=== PATIENT | female | born 1960 | race Caucasian/White ===

== ENCOUNTER 2021-03-31 13:58 | Inpatient (IN) ==
--- NOTE | 2021-03-31 14:20 | Emergency Department Note ---
HPI General Chief complaint: Blood Pressure Problem Stated complaint: low bp, tachycardia Time Seen by Provider: 03/31/21 14:03 Source: patient Mode of arrival: wheelchair Limitations: no limitations History of Present Illness HPI Narrative: Narrative: 60 yo F w/ complex PMH including TAVR for severe (03/12/21 at [place]) along w/ CHF, DM, p/w reported low blood pressure and lightheadedness. She reports that the Sx began this AM on waking and have been constant w/o alleviating/aggravating factors since then. She has not had similar Sx in the past. Her is here w/ her and has a record of her daily BP. It seems that she is usually either right around 100 systolic or 150 systolic. She is on metoprolol which was started after her TAVR, at 25mg BIP, but is being switched to QD dosing. Additionally, she notes an open wound at her R femoral access site for the TAVR. She reports having a wound vac on for one week after the procedure. She was then referred to wound care but could not immediately see them. Currently she has clear/yellow drainage, no fever/chills, no spreading erythema. She denies any other Sx such as CP, SOB, N/V/D. Related Data Home Medications Medication Instructions Recorded Confirmed diclofenac sodium 1 % topical gel 2 g TOPICAL QID 03/08/19 03/31/21 aspirin 81 mg tablet,delayed 81 mg PO QDAY 03/19/21 03/31/21 release losartan 25 mg tablet 25 mg PO QDAY 03/25/21 03/31/21 metoprolol succinate 25 mg 25 mg PO QDAY 03/27/21 03/31/21 tablet,extended release 24 hr Previous Rx's Medication Instructions Recorded fluticasone propionate 50 2 spray INTRANASAL QDAY #36.4 ml 06/06/19 mcg/actuation nasal spray,suspension clotrimazole 2 % vaginal cream 1 appful VAGINAL QHS 3 Days #21 g 01/05/20 levetiracetam 500 mg tablet 500 mg PO BID #180 tab 06/17/20 blood sugar diagnostic #200 each 06/27/20 lorazepam 1 mg tablet 0.5 mg PO Q8H PRN #90 tab 06/27/20 gabapentin 300 mg capsule See Rx Instructions .ROUTE 07/29/20 .COMPLEX #360 cap conjugated estrogens 0.625 mg/gram 0.625 mg VAGINAL 2XW #30 g 08/27/20 vaginal cream insulin lispro protamine-lispro 50 unit SUB-Q .COMPLEX #100 ml 10/28/20 100 unit/mL (75-25) subcutaneous susp ergocalciferol (vitamin D2) 1,250 See Rx Instructions .ROUTE 12/10/20 mcg (50,000 unit) capsule .COMPLEX #12 cap atorvastatin 80 mg tablet 80 mg PO QHS #90 tab 01/01/21 clopidogrel 75 mg tablet 75 mg PO QDAY #90 tab 01/01/21 quetiapine 25 mg tablet 25 - 50 mg PO QHS #180 tab 01/01/21 insulin syringe-needle U-100 1 mL See Rx Instructions .ROUTE 01/24/21 31 gauge x 10/06" .COMPLEX #100 each baclofen 10 mg tablet See Rx Instructions .ROUTE 02/06/21 .COMPLEX #90 tab fluconazole 100 mg tablet 100 mg PO QDAY #7 tab 02/11/21 hydrocodone 10 mg-acetaminophen 1 tab PO Q4H PRN #90 tab 02/24/21 325 mg tablet metformin 1,000 mg tablet See Rx Instructions .ROUTE 03/05/21 .COMPLEX #300 tab Allergies Allergy/AdvReac Type Severity Reaction Status Date / Time morphine Allergy Unknown Itching Verified 03/31/21 14:04 moxifloxacin [From Avelox] Allergy Unknown skin Verified 03/31/21 14:04 irritation, bright red Review of Systems ROS ROS Narrative: Narrative: All systems ED: reviewed and negative except as stated. [facility] Narrative Patient History Narrative: Narrative: Medical/Surgical/Family History All Active Problems Light-headedness (Acute) CHF (congestive heart failure) (Acute) Sepsis (Acute) Postoperative wound infection (Acute) S/P TAVR (transcatheter aortic valve replacement) (Acute) CHF (congestive heart failure) (Acute) Type 2 diabetes mellitus (Acute) Hypotension (Acute) Postoperative external wound disruption (Acute) Anemia (Acute) Aortic stenosis (Acute) Syncope (Acute) Sebaceous cyst (Acute) Atrophic vaginitis (Acute) Vagina, candidiasis (Acute) Sinusitis (Acute) Headaches due to old head injury (Acute) Near syncope (Acute) SOB (shortness of breath) (Acute) Left knee pain (Acute) Pain, dental (Acute) Right knee pain (Acute) Vaginal candidiasis (Acute) Calcified cerebral meningioma (Chronic) Gastroparesis (Chronic) Pancreatitis (Chronic) History of colonoscopy (Chronic) History of total abdominal hysterectomy (Chronic ~1985) Hx MRSA infection (Chronic ~2006) Right foot pain (Chronic) Depression (Chronic) Insomnia (Chronic) Anxiety (Chronic) Neoplasm of kidney (Chronic ~08/2010) Shoulder impingement syndrome (Chronic) Tobacco abuse (Chronic) Peripheral vascular disease (Chronic) Leg pain (Chronic) Fatigue (Chronic) Seizure (Chronic) CVA (cerebral vascular accident) (Chronic) Hyperlipidemia (Chronic) Diverticular disease (Chronic) Unspecified vitamin D deficiency (Chronic) Inguinal pain of both sides (Chronic) Diabetic peripheral neuropathy (Chronic) Knee pain (Chronic) Headache (Chronic) Chalazion (Chronic) Diabetic foot ulcer (Chronic) Paresthesia (Chronic) Chronic pain syndrome (Chronic) BMI 40.0-44.9, adult (Chronic) Other injury of unspecified body region, initial encounter (Chronic) At risk for falls (Chronic) DDD (degenerative disc disease), cervical (Chronic) Diabetes mellitus treated with insulin (Chronic) Medical History Anemia Anxiety At risk for falls BMI 40.0-44.9, adult Calcified cerebral meningioma Chalazion Chronic pain syndrome CVA (cerebral vascular accident) DDD (degenerative disc disease), cervical Depression Diabetes mellitus treated with insulin Diabetic foot ulcer Diabetic peripheral neuropathy Diverticular disease Fatigue Gastroparesis Headache Hyperlipidemia Inguinal pain of both sides Insomnia Knee pain Leg pain Other injury of unspecified body region, initial encounter Pancreatitis Paresthesia Peripheral vascular disease Right foot pain Seizure Shoulder impingement syndrome Tobacco abuse Unspecified vitamin D deficiency Surgical History Carotid artery occlusion with infarction craniaotomy with myosin anglossis, left arm flacid, now some movement History of colonoscopy 2005 2014 - normal History of total abdominal hysterectomy (~1985) Hx MRSA infection (~2006) foot surgery with mrsa, chronic pain on hydrocodone Dr Brown Neoplasm of kidney (~08/2010) sx on 08/22 mass on kidney Family History Other No pertinent family history Social History Smoking Status: Former smoker Alcohol Intake Frequency: does not drink Substance Use: does not use Exam Narrative Narrative: Narrative: General Limitations: no limitations General appearance: Present alert and in no apparent distress Head Head: Present atraumatic and normocephalic ENT ENT: Present normal oropharynx and mucous membranes moist Chest Chest: Present normal inspection and symmetric chest wall rise Respiratory Respiratory: Present normal lung sounds bilaterally; Absent respiratory distress, rales/crackles and wheezes Cardiovascular Cardiovascular: Present regular rate, normal rhythm, +S1, +S2 and other (2+ B/L radial and DP pulses); Absent systolic murmur and diastolic murmur Adbominal Abdominal: Present soft and normal bowel sounds; Absent distention and tenderness Extremities Extremities: Absent pedal edema Neurological Neurological: Present alert and oriented X3 Psychiatric Psychiatric: Present normal affect Skin Skin: Present warm (WNL), dry and other (R femoral 8cm ulceration w/ leigh slough tissue, minimal surrounding blanching erythema, serous drainage on dressing, no active drainage, no warmth, no TTP.) Course Vital Signs Vital signs: Vital Signs Temperature 98.0 F 03/31/21 13:59 Pulse Rate 97 H 03/31/21 13:59 Respiratory Rate 22 03/31/21 13:59 Blood Pressure 127/37 03/31/21 13:59 Pulse Oximetry (%) 97 03/31/21 13:59 Temperature 98.0 F 03/31/21 13:59 Pulse Rate 97 H 03/31/21 13:59 Respiratory Rate 17 03/31/21 17:01 Blood Pressure 101/75 03/31/21 17:01 Pulse Oximetry (%) 97 03/31/21 13:59 [facility] MDM Narrative Medical decision making narrative: Narrative: 60 yo F w/ recent TAVR p/w lightheadedness, borderline BP, and drainage from her wound. DDx - sepsis, hemorrhagic shock, cardiogenic shock, metabolic/electrolyte d/o, NSTI Pt presented w/ her BP around baseline. She was in NAD, was non-toxic appearing. While she was not tachycardic per se, a HR in the 80s-90s did seem fairly fast on B-blockers. Given the presentation of malaise, and a wound w/ a possible infection, the evaluation was strongly suggestive of sepsis. I considered hem orrhagic shock given the recent TAVR however there were no hard or soft signs of bleeding from the access site and no evidence of mediastinal bleeding. She had no SOB, CP, increasing edema that would suggest cardiogenic shock after her recent TAVR. CMP showed no serious abnormalities. CBC showed no leukocytosis. Her lactate however was fairly elevated. Her overall presentation was c/w sepsis d/t a wound infection. After my initial Hx, I planned to order rocephin. However Dr Mix, her [facility] physician arrived at that moment and we discussed her case. He stated that he had cultured the wound in the office and wanted to check his results prior to us ordering abx. He did so, but the results were not in, and he recommended vanc/zosyn which I ordered. He stated that he planned to debride her wound in the OR tomorrow, and requested hospitalist admission. She was accepted by the hospitalist. She tolerated all interventions well. Of note, she was at high risk for decompensation from IVF given her recent TAVR, her h/o CHF. I felt that the risks outweighed the benefits of IVF bolus, and proceeded w/ an infusion of 125/hr NS. Lab Data Lab results reviewed: Yes I reviewed the patient's lab results. Result diagrams: 03/31/21 14:25 03/31/21 14:25 Labs: Lab Results 03/31/21 03/31/21 Range/Units 14:25 14:25 WBC 7.9 (4.5-11.0) K/mcL RBC 3.98 (3.59-5.38) M/mcL Hgb 11.7 (11.2-15.7) g/dL Hct 37.6 (34.1-44.9) % MCV 94.5 (80.0-100.0) fL MCH 29.4 (26.0-34.0) pg MCHC 31.1 (31.0-36.0) g/dL RDW 13.6 (11.5-14.5) % Plt Count 459 H (140-440) K/mcL MPV 10.4 (7.4-10.4) fL Neut % (Auto) 63.5 (38.0-78.0) % Lymph % (Auto) 24.1 (15.5-49.0) % [place] % (Auto) 8.6 (1.0-12.0) % Eos % (Auto) 3.0 (0.0-7.0) % Baso % (Auto) 0.8 (0.0-2.0) % Lymph # (Auto) 1.91 (1.50-4.80) K/mcL [place] # (Auto) 0.68 (0.10-0.90) K/mcL Eos # (Auto) 0.24 (0.00-0.70) K/mcL Baso # (Auto) 0.06 (0.00-0.30) K/mcL Absolute Neutrophils 5.03 (1.80-8.00) K/mcL VBG Lactic Acid 4.0 H* (0.5-2.0) mmol/L Sodium 140 (133-145) mmol/L Potassium 4.2 (3.3-5.1) mmol/L Chloride 101 (96-108) mmol/L Carbon Dioxide 20 L (22-30) mmol/L Anion Gap 19.0 H (8.0-16.0) BUN 13 (6-20) mg/dL Creatinine 1.0 (0.6-1.1) mg/dL GFR Calculation 61 Glucose 247 H (70-105) mg/dL Calcium 9.5 (8.6-10.4) mg/dL Total Bilirubin 0.5 (0.1-1.0) mg/dL AST 25 (<32) U/L ALT 20 (<40) U/L Alkaline Phosphatase 78 (39-117) U/L Total Protein 7.6 (5.9-8.4) gm/dL Albumin 3.8 (3.2-5.2) gm/dL Globulin 3.8 H (2.2-3.7) gm/dL Albumin/Globulin Ratio 1.0 (1.0-2.3) CC TIME Critical Care Time Total Critical Care Time: 35 Attestation: The very real possibility of disability or existed without emergent intervention and required my utmost care. Organ systems at risk included CVS, skin, MSK. Interventions included abx, review of labs, and d/w specialist. Critical care time did not include any procedures. Discharge Plan Patient/Caregiver Discharge Instructions Pt seen by [employer]ER/PA only: No Clinical Impression: Light-headedness, CHF (congestive heart failure), Sepsis, Postoperative wound infection, S/P TAVR (transcatheter aortic valve replacement) Patient Disposition: Xfer As Inpt ([facility]) Condition: Fair
[2021-03-31] MEDS ORDERED: VANCOMYCIN 1,500 MG in 0.9 % SODIUM CHLORIDE 500 ML IV ONE (14:39)
[2021-03-31] MEDS ORDERED: PIPERACILLIN SODIUM/TAZOBACTAM 4.5 GM in DEXTROSE 5% IN WATER 50 ML IV ONE (14:39)
[2021-03-31] MEDS ORDERED: HYDROcodone/APAP 10/325MG TABLET PO PRN (15:18)
[2021-03-31 15:29] LABS: Basophils # (Auto) 0.06 K/mcL (0.00-0.30); Basophils % (Auto) 0.8 % (0.0-2.0); Eosinophils # (Auto) 0.24 K/mcL (0.00-0.70); Hematocrit 37.6 % (34.1-44.9); Hemoglobin 11.7 g/dL (11.2-15.7); Lymphocytes # (Auto) 1.91 K/mcL (1.50-4.80); Lymphocytes % (Auto) 24.1 % (15.5-49.0); Mean Cell Volume 94.5 fL (80.0-100.0); Mean Corpuscular HGB Conc 31.1 g/dL (31.0-36.0); Mean Platelet Volume 10.4 fL (7.4-10.4); Monocytes # (Auto) 0.68 K/mcL (0.10-0.90); Monocytes % (Auto) 8.6 % (1.0-12.0); Neutrophils % (Auto) 63.5 % (38.0-78.0); Platelet Count 459 K/mcL (140-440); RBC 3.98 M/mcL (3.59-5.38); Red Cell Distribution Width 13.6 % (11.5-14.5); WBC 7.9 K/mcL (4.5-11.0)
[2021-03-31] MEDS ORDERED: ERGOCALCIFEROL (VITAMIN D2) 50,000 UNIT CAPSULE PO SCH ×2 (15:30→17:39)
[2021-03-31] MEDS ORDERED: BACLOFEN 10 MG TABLET PO PRN ×2 (15:30→17:39)
[2021-03-31] MEDS ORDERED: ESTROGENS, CONJUGATED 1 APPFUL TUBE 30GM VAG SCH (15:30)
[2021-03-31] MEDS ORDERED: LORazepam 0.5 MG TABLET PO PRN ×2 (15:35→17:45)
--- NOTE | 2021-03-31 15:37 | Internal Med History&Physical ---
HPI History of Present Illness Patient information: Note initiated : 03/31/21 at 3:36 pm Service Date, if different from initiated Date: [] Patient: Lawanda Grant a 60 y/o F admitted on for low bp, tachycardia. Chief Complaint: [right groin wound] History of present illness: Ms. Grant is a 60 year old F history of aortic stenosis status post TAVR on March 12, 2021, congestive heart failure, type 2 diabetes mellitus, presenting with 1 day history of low blood pressure and lightheadedness. Symptoms started this morning on waking with exacerbations factors including any movement and activities. There is no prior similar episodes. She was started on metoprolol extended release 25mg PO twice daily, which was being changed to daily a week ago. She was also placed on a wound VAC for her right groin surgical wound for 1 week after her TAVR surgery. According to patient and , there is still some clear wound discharged since the removal of the wound VAC. She denies any fever or chills. She is complaining of 8.5 out of 10 sharp chest pain as well as 8.5 out of 10 burning right groin pain. Vital signs significant for soft blood pressure 74/57mmHg, labs pending. Dr. Mix consulted for wound management, and he would like me to admit patient for antibiotics therapy for the time being and wound debridement later. Constitutional Constitutional: Absent chills, excessive sweating, fatigue, fever(s) and weakness EENT Eyes: Absent blurry vision, change in vision, loss of vision and other visual disturbances Ears: Absent decreased hearing and tinnitus Nose, mouth and throat: Absent abnormal hearing, dry mouth, headache(s), nasal congestion and sore throat Cardiovascular Cardiovascular: Present chest pain at rest; Absent chest pain, edema, irregular heart rhythm and palpatations Respiratory Respiratory: Absent cough, dyspnea and wheezing Gastrointestinal Gastrointestinal: Absent abdominal pain, constipation, diarrhea, nausea and vomiting Musculoskeletal Musculoskeletal: Absent back pain, deformity, limited range of motion, muscle cramps, muscle weakness and numbness Integumentary Integumentary: Present wounds; Absent lesions and rash Neurological Neurological: Absent focal weakness, headache(s) and numbness Psychiatric Psychiatric: Absent anxiety, depression and hallucinations PFSH PFSH All Active Problems (Updated 03/31/21 @ 15:47 by Emir Rodarte MD) CHF (congestive heart failure) (Acute) Type 2 diabetes mellitus (Acute) Hypotension (Acute) Postoperative external wound disruption (Acute) Anemia (Acute) Aortic stenosis (Acute) Syncope (Acute) Sebaceous cyst (Acute) Atrophic vaginitis (Acute) Vagina, candidiasis (Acute) Sinusitis (Acute) Headaches due to old head injury (Acute) Near syncope (Acute) SOB (shortness of breath) (Acute) Left knee pain (Acute) Pain, dental (Acute) Right knee pain (Acute) Vaginal candidiasis (Acute) Calcified cerebral meningioma (Chronic) Gastroparesis (Chronic) Pancreatitis (Chronic) History of colonoscopy (Chronic) History of total abdominal hysterectomy (Chronic ~1985) Hx MRSA infection (Chronic ~2006) Right foot pain (Chronic) Depression (Chronic) Insomnia (Chronic) Anxiety (Chronic) Neoplasm of kidney (Chronic ~08/2010) Shoulder impingement syndrome (Chronic) Tobacco abuse (Chronic) Peripheral vascular disease (Chronic) Leg pain (Chronic) Fatigue (Chronic) Seizure (Chronic) CVA (cerebral vascular accident) (Chronic) Hyperlipidemia (Chronic) Diverticular disease (Chronic) Unspecified vitamin D deficiency (Chronic) Inguinal pain of both sides (Chronic) Diabetic peripheral neuropathy (Chronic) Knee pain (Chronic) Headache (Chronic) Chalazion (Chronic) Diabetic foot ulcer (Chronic) Paresthesia (Chronic) Chronic pain syndrome (Chronic) BMI 40.0-44.9, adult (Chronic) Other injury of unspecified body region, initial encounter (Chronic) At risk for falls (Chronic) DDD (degenerative disc disease), cervical (Chronic) Diabetes mellitus treated with insulin (Chronic) Medical History Anemia Anxiety At risk for falls BMI 40.0-44.9, adult Calcified cerebral meningioma Chalazion Chronic pain syndrome CVA (cerebral vascular accident) DDD (degenerative disc disease), cervical Depression Diabetes mellitus treated with insulin Diabetic foot ulcer Diabetic peripheral neuropathy Diverticular disease Fatigue Gastroparesis Headache Hyperlipidemia Inguinal pain of both sides Insomnia Knee pain Leg pain Other injury of unspecified body region, initial encounter Pancreatitis Paresthesia Peripheral vascular disease Right foot pain Seizure Shoulder impingement syndrome Tobacco abuse Unspecified vitamin D deficiency Surgical History Carotid artery occlusion with infarction craniaotomy with myosin anglossis, left arm flacid, now some movement History of colonoscopy 2005 2014 - normal History of total abdominal hysterectomy (~1985) Hx MRSA infection (~2006) foot surgery with mrsa, chronic pain on hydrocodone Dr Brown Neoplasm of kidney (~08/2010) sx on 08/22 mass on kidney Family History Other No pertinent family history Social History household members: significant other lives independently: Yes marital status: life partner alcohol intake frequency: does not drink substance use type: does not use MEDS/ALLERGIES Home Medications and Allergies Home Medications Medication Instructions Recorded Confirmed Type diclofenac sodium 1 % topical gel 2 g TOPICAL QID 03/08/19 03/31/21 History fluticasone propionate 50 2 spray INTRANASAL QDAY #36.4 ml 06/06/19 03/31/21 Rx mcg/actuation nasal spray,suspension clotrimazole 2 % vaginal cream 1 appful VAGINAL QHS 3 Days #21 g 01/05/20 03/31/21 Rx levetiracetam 500 mg tablet 500 mg PO BID #180 tab 06/17/20 03/31/21 Rx blood sugar diagnostic #200 each 06/27/20 03/31/21 Rx lorazepam 1 mg tablet 0.5 mg PO Q8H PRN #90 tab 06/27/20 03/31/21 Rx gabapentin 300 mg capsule See Rx Instructions .ROUTE 07/29/20 03/31/21 Rx .COMPLEX #360 cap conjugated estrogens 0.625 mg/gram 0.625 mg VAGINAL 2XW #30 g 08/27/20 03/31/21 Rx vaginal cream insulin lispro protamine-lispro 50 unit SUB-Q .COMPLEX #100 ml 10/28/20 03/31/21 Rx 100 unit/mL (75-25) subcutaneous susp ergocalciferol (vitamin D2) 1,250 See Rx Instructions .ROUTE 12/10/20 03/31/21 Rx mcg (50,000 unit) capsule .COMPLEX #12 cap atorvastatin 80 mg tablet 80 mg PO QHS #90 tab 01/01/21 03/31/21 Rx clopidogrel 75 mg tablet 75 mg PO QDAY #90 tab 01/01/21 03/31/21 Rx quetiapine 25 mg tablet 25 - 50 mg PO QHS #180 tab 01/01/21 03/31/21 Rx insulin syringe-needle U-100 1 mL See Rx Instructions .ROUTE 01/24/21 03/31/21 Rx 31 gauge x 10/06" .COMPLEX #100 each baclofen 10 mg tablet See Rx Instructions .ROUTE 02/06/21 03/31/21 Rx .COMPLEX #90 tab fluconazole 100 mg tablet 100 mg PO QDAY #7 tab 02/11/21 03/31/21 Rx hydrocodone 10 mg-acetaminophen 1 tab PO Q4H PRN #90 tab 02/24/21 03/31/21 Rx 325 mg tablet metformin 1,000 mg tablet See Rx Instructions .ROUTE 03/05/21 03/31/21 Rx .COMPLEX #300 tab aspirin 81 mg tablet,delayed 81 mg PO QDAY 03/19/21 03/31/21 History release losartan 25 mg tablet 25 mg PO QDAY 03/25/21 03/31/21 History metoprolol succinate 25 mg 25 mg PO QDAY 03/27/21 03/31/21 History tablet,extended release 24 hr Allergies Allergy/AdvReac Type Severity Reaction Status Date / Time morphine Allergy Unknown Itching Verified 03/31/21 14:04 moxifloxacin [From Avelox] Allergy Unknown skin Verified 03/31/21 14:04 irritation, bright red EXAM Constitutional Vitals: Temp Pulse Resp BP Pulse Ox 36.7 C 97 H 23 H 74/57 97 03/31/21 13:59 03/31/21 13:59 03/31/21 15:05 03/31/21 15:05 03/31/21 13:59 General appearance: cooperative, no acute distress and obese Head Head exam: Present atraumatic and normocephalic Eye Eye exam: Present EOMI and PERRL ENT ENT exam: Present mucous membranes moist, normal exam and normal external ear exam Neck Neck exam: Present normal inspection; Absent lymphadenopathy, tenderness and thyromegaly Respiratory Respiratory exam: Absent accessory muscle use, respiratory distress and wheezes Cardiovascular Cardiovascular exam: Present normal rate and rhythm; Absent JVD GI/Abdominal GI/Abdominal exam: Present normal bowel sounds and soft; Absent organomegaly and tenderness Extremities Exam Extremities exam: Present full ROM, normal capillary refill and normal inspection; Absent tenderness Neurological Exam Neurological exam: Present alert, CN II-XII intact and oriented X3; Absent motor sensory deficit Psychiatric Psychiatric exam: Present normal affect and normal mood; Absent anxious and depressed Skin Skin exam: Present dry; Absent intact Additional comments: right groin wound with surrounding erythema, tenderness to palpation, no discharge, no swelling. DATA Data Completed and Pending Labs: Labs from last 24 hours 03/31/21 03/31/21 14:25 14:25 WBC 7.9 RBC 3.98 Hgb 11.7 Hct 37.6 MCV 94.5 MCH 29.4 MCHC 31.1 RDW 13.6 Plt Count 459 H MPV 10.4 Neut % (Auto) 63.5 Lymph % (Auto) 24.1 [place] % (Auto) 8.6 Eos % (Auto) 3.0 Baso % (Auto) 0.8 Lymph # (Auto) 1.91 [place] # (Auto) 0.68 Eos # (Auto) 0.24 Baso # (Auto) 0.06 Absolute Neutrophils 5.03 VBG Lactic Acid Pending Sodium Pending Potassium Pending Chloride Pending Carbon Dioxide Pending Anion Gap Pending BUN Pending Creatinine Pending GFR Calculation Pending Glucose Pending Calcium Pending Total Bilirubin Pending AST Pending ALT Pending Alkaline Phosphatase Pending Total Protein Pending Albumin Pending Globulin Pending Albumin/Globulin Ratio Pending A/P Assessment and plan (1) Aortic stenosis: Status: Acute Comment: History of TAVR 03/13 in [facility] (2) Postoperative external wound disruption: Status: Acute Qualifiers: Encounter type: initial encounter Qualified Code(s): T81.31XA - Disruption of external operation (surgical) wound, not elsewhere classified, initial encounter (3) Depression: Status: Chronic (4) Anxiety: Status: Chronic (5) BMI 40.0-44.9, adult: Status: Chronic (6) Type 2 diabetes mellitus: Status: Acute (7) CHF (congestive heart failure): Status: Acute Narrative A/P Narrative: Assessment and Plans: 1. Right groin surgical wound infection: Admit to inpatient med surg for antibiotics therapy Consult Dr. Mix for potentially wound debridement Serial lactic acid Procalcitonin Blood culture Wound culture Vancomycin Rocephin Tylenol PRN fever [place] PRN moderate pain Morphine IV PRN severe pain cbc w/ auto diff in the AM to trend WBC 2. Type 2 diabetes mellitus: Hold oral hypoglycemics Insulin 75/25 Low-dose correctional scale insulin AC at bedtime Accu-Chek AC HS Hypoglycemia protocol Diabetic diet #3 history of aortic stenosis status post TAVR on 03/12/21: Continue aspirin and Plavix Patient is not on any anticoagulation therapy, will verify with the patient #4 history of congestive heart failure: No sign of acute exacerbations Hold metoprolol ER out and losartan given soft BP currently #5 history of essential hypertension's: Hold metoprolol ER out and losartan given soft BP currently #6 morbid obesity: Counseled patient on lifestyle modifications including regular exercise and healthy diet in order to lose weight GI prophylaxis: Not currently indicated DVT prophylaxis: SCDs CODE STATUS: Full code Prognosis: Stable Dispositions: Inpatient MedSurg Time Spent With Patient Time: Total time spent is greater than 50% in coordination of care (as documented) at patient's floor/unit and/or counseling patient: Total time spent with greater than 50% in coordination of care (as documented) at patient's floor/unit and/or counseling patient:: Greater than 35 minutes
[2021-03-31] MEDS ORDERED: VANCOMYCIN PER PHARMACY IV SCH (15:43)
[2021-03-31 15:58] LABS: ALT/SGPT 20 U/L (<40); AST/SGOT 25 U/L (<32); Albumin 3.8 gm/dL (3.2-5.2); Alkaline Phosphatase 78 U/L (39-117); Bilirubin,Total 0.5 mg/dL (0.1-1.0); Blood Urea Nitrogen 13 mg/dL (6-20); Calcium 9.5 mg/dL (8.6-10.4); Carbon Dioxide 20 mmol/L (22-30); Chloride 101 mmol/L (96-108); Globulin 3.8 gm/dL (2.2-3.7); Glomerular Filtration Rate 61; Glucose 247 mg/dL (70-105)
[2021-03-31] MEDS ORDERED: DICLOFENAC SODIUM 1% TOPICAL SCH (17:00)
[2021-03-31] MEDS ORDERED: DEXTROSE 31 GM ORAL.SUSP PO PRN (17:39)
[2021-03-31] MEDS ORDERED: ACETAMINOPHEN 325 MG TABLET PO PRN (17:39)
[2021-03-31] MEDS ORDERED: cefTRIAXone 1 GM in DEXTROSE 5% IN WATER 50 ML IV SCH (17:39)
[2021-03-31] MEDS ORDERED: DEXTROSE 50% 50 ML VIAL IV PRN (17:39)
[2021-03-31] MEDS ORDERED: ONDANSETRON 4 MG/2 ML VIAL IV PRN (17:39)
[2021-03-31] MEDS ORDERED: ZOLPIDEM 5 MG TABLET PO PRN (17:39)
[2021-03-31] MEDS ORDERED: VANCOMYCIN PER PHARMACY IV ONE (17:39)
[2021-03-31] MEDS ORDERED: morphine 4 MG/ML VIAL IV PRN (17:39)
[2021-03-31] MEDS: INSULIN LISPRO 1 UNIT/0.01 ML UNIT SQ SCH ×2 (18:34→22:25)
[2021-03-31] MEDS: HYDROcodone/APAP 10/325MG TABLET PO PRN (19:52)
[2021-03-31] MEDS: 0.9 % SODIUM CHLORIDE 1,000 ML IV SCH (20:15)
[2021-03-31] MEDS ORDERED: GABAPENTIN 300 MG CAPSULE PO SCH (21:00)
[2021-03-31] MEDS ORDERED: CLOTRIMAZOLE 2% VAG SCH (21:00)
[2021-03-31] MEDS ORDERED: ATORVASTATIN 40 MG TABLET PO SCH (21:00)
[2021-03-31] MEDS ORDERED: levETIRAcetam 500 MG TABLET PO SCH (21:00)
[2021-03-31] MEDS ORDERED: INSULIN, 75/25 NPL/LISPRO 1 UNIT/0.01 ML UNIT SQ SCH (21:00)
[2021-03-31] MEDS ORDERED: QUEtiapine 25 MG TABLET PO SCH (21:00)
[2021-03-31] MEDS: DOCUSATE SODIUM 100 MG CAPSULE PO SCH (22:23)
[2021-03-31] MEDS: SENNOSIDES 1 TABLET PO SCH (22:23)
[2021-03-31] MEDS: GABAPENTIN 300 MG CAPSULE PO SCH (22:24)
[2021-03-31] MEDS: levETIRAcetam 500 MG TABLET PO SCH (22:24)
[2021-03-31] MEDS: QUEtiapine 25 MG TABLET PO SCH (22:25)
[2021-03-31] MEDS: CLOTRIMAZOLE 2% VAG SCH (22:25)
[2021-03-31] MEDS: DICLOFENAC SODIUM 1% TOPICAL SCH (22:25)
[2021-03-31] MEDS: INSULIN, 75/25 NPL/LISPRO 1 UNIT/0.01 ML UNIT SQ SCH (22:26)
[2021-03-31] MEDS: ATORVASTATIN 40 MG TABLET PO SCH (22:27)
[2021-03-31] MEDS: 0.9 % SODIUM CHLORIDE 10 ML SYRINGE IV SCH (22:28)
[2021-04-01] MEDS: 0.9 % SODIUM CHLORIDE 1,000 ML IV SCH ×3 (00:01→19:29)
[2021-04-01] MEDS: VANCOMYCIN 1,500 MG in 0.9 % SODIUM CHLORIDE 500 ML IV SCH ×3 (01:30→21:14)
[2021-04-01] MEDS: HYDROcodone/APAP 10/325MG TABLET PO PRN ×4 (04:58→21:22)
[2021-04-01] MEDS: 0.9 % SODIUM CHLORIDE 10 ML SYRINGE IV SCH ×3 (06:09→21:20)
[2021-04-01 06:54] LABS: Basophils # (Auto) 0.04 K/mcL (0.00-0.30); Basophils % (Auto) 0.8 % (0.0-2.0); Eosinophils # (Auto) 0.17 K/mcL (0.00-0.70); Eosinophils % (Auto) 3.2 % (0.0-7.0); Hematocrit 35.6 % (34.1-44.9); Hemoglobin 10.7 g/dL (11.2-15.7); Lymphocytes # (Auto) 1.66 K/mcL (1.50-4.80); Lymphocytes % (Auto) 31.3 % (15.5-49.0); Mean Cell Volume 96.2 fL (80.0-100.0); Mean Corpuscular HGB Conc 30.1 g/dL (31.0-36.0); Mean Platelet Volume 10.3 fL (7.4-10.4); Monocytes # (Auto) 0.58 K/mcL (0.10-0.90); Monocytes % (Auto) 10.9 % (1.0-12.0); Neutrophils % (Auto) 53.8 % (38.0-78.0); Platelet Count 352 K/mcL (140-440); Red Cell Distribution Width 13.6 % (11.5-14.5); WBC 5.3 K/mcL (4.5-11.0)
[2021-04-01 07:07] LABS: ALT/SGPT 17 U/L (<40); AST/SGOT 18 U/L (<32); Albumin 3.5 gm/dL (3.2-5.2); Alkaline Phosphatase 72 U/L (39-117); Bilirubin,Total 0.5 mg/dL (0.1-1.0); Blood Urea Nitrogen 8 mg/dL (6-20); Carbon Dioxide 23 mmol/L (22-30); Chloride 106 mmol/L (96-108); Globulin 3.4 gm/dL (2.2-3.7); Glomerular Filtration Rate 80; Glucose 214 mg/dL (70-105)
[2021-04-01] MEDS: INSULIN LISPRO 1 UNIT/0.01 ML UNIT SQ SCH ×4 (07:18→21:25)
[2021-04-01] MEDS ORDERED: GABAPENTIN 300 MG CAPSULE PO SCH (08:00)
[2021-04-01] MEDS ORDERED: VANCOMYCIN PER PHARMACY IV SCH (08:00)
--- NOTE | 2021-04-01 08:30 | General Surgery Consult Note ---
[facility] Data of Consult Consult date: 04/01/21 Requesting physician: Emir Rodarte Primary Care Provider: Seema Interiano Consult Narrative Chief complaint: Post surgery wound infection / inflammation RIGHT groin Reason for consult: Wound Management. History of present illness: I know this patient from prior encounter at wound [facility]. She was admitted via ER with dizziness and noted to have increased drainage and redness around surgery wound of RIGHT groin. She is s/p TAVR for aortic stenosis. Procedure carried out at [facility] in [place], [place] over 2 weeks ago. I spoke about this development with cardiologists in the group at [facility] [place], [place]. Patient NEEDS wound debridement. She wants this to be done here locally. It's OK with CVT team for this to be carried out here, Comorbidities: CHRIS, Anxiety, Past CVA, Calcified Meningioma and other medical conditions optimally managed. She is on PO anticoagulants These can continue. I have discussed plan of care with patient, her , Dr. Rodarte, Hospitalist and Chung Larios RN Wound care nurse.. cc:: CC: Emir Rodarte MD [facility] All Active Problems Light-headedness (Acute) CHF (congestive heart failure) (Acute) Sepsis (Acute) Postoperative wound infection (Acute) S/P TAVR (transcatheter aortic valve replacement) (Acute) CHF (congestive heart failure) (Acute) Type 2 diabetes mellitus (Acute) Hypotension (Acute) Postoperative external wound disruption (Acute) Anemia (Acute) Aortic stenosis (Acute) Syncope (Acute) Sebaceous cyst (Acute) Atrophic vaginitis (Acute) Vagina, candidiasis (Acute) Sinusitis (Acute) Headaches due to old head injury (Acute) Near syncope (Acute) SOB (shortness of breath) (Acute) Left knee pain (Acute) Pain, dental (Acute) Right knee pain (Acute) Vaginal candidiasis (Acute) Calcified cerebral meningioma (Chronic) Gastroparesis (Chronic) Pancreatitis (Chronic) History of colonoscopy (Chronic) History of total abdominal hysterectomy (Chronic ~1985) Hx MRSA infection (Chronic ~2006) Right foot pain (Chronic) Depression (Chronic) Insomnia (Chronic) Anxiety (Chronic) Neoplasm of kidney (Chronic ~08/2010) Shoulder impingement syndrome (Chronic) Tobacco abuse (Chronic) Peripheral vascular disease (Chronic) Leg pain (Chronic) Fatigue (Chronic) Seizure (Chronic) CVA (cerebral vascular accident) (Chronic) Hyperlipidemia (Chronic) Diverticular disease (Chronic) Unspecified vitamin D deficiency (Chronic) Inguinal pain of both sides (Chronic) Diabetic peripheral neuropathy (Chronic) Knee pain (Chronic) Headache (Chronic) Chalazion (Chronic) Diabetic foot ulcer (Chronic) Paresthesia (Chronic) Chronic pain syndrome (Chronic) BMI 40.0-44.9, adult (Chronic) Other injury of unspecified body region, initial encounter (Chronic) At risk for falls (Chronic) DDD (degenerative disc disease), cervical (Chronic) Diabetes mellitus treated with insulin (Chronic) Medical History Anemia Anxiety At risk for falls BMI 40.0-44.9, adult Calcified cerebral meningioma Chalazion Chronic pain syndrome CVA (cerebral vascular accident) DDD (degenerative disc disease), cervical Depression Diabetes mellitus treated with insulin Diabetic foot ulcer Diabetic peripheral neuropathy Diverticular disease Fatigue Gastroparesis Headache Hyperlipidemia Inguinal pain of both sides Insomnia Knee pain Leg pain Other injury of unspecified body region, initial encounter Pancreatitis Paresthesia Peripheral vascular disease Right foot pain Seizure Shoulder impingement syndrome Tobacco abuse Unspecified vitamin D deficiency Surgical History Carotid artery occlusion with infarction craniaotomy with myosin anglossis, left arm flacid, now some movement History of colonoscopy 2005 2014 - normal History of total abdominal hysterectomy (~1985) Hx MRSA infection (~2006) foot surgery with mrsa, chronic pain on hydrocodone Dr Brown Neoplasm of kidney (~08/2010) sx on 08/22 mass on kidney Family History Other No pertinent family history Social History household members: significant other lives independently: Yes marital status: life partner alcohol intake frequency: does not drink substance use type: does not use MEDS/ALLERGIES Home Medications and Allergies Home Medications Medication Instructions Recorded Confirmed Type diclofenac sodium 1 % topical gel 2 g TOPICAL QID 03/08/19 03/31/21 History fluticasone propionate 50 2 spray INTRANASAL QDAY #36.4 ml 06/06/19 03/31/21 Rx mcg/actuation nasal spray,suspension clotrimazole 2 % vaginal cream 1 appful VAGINAL QHS 3 Days #21 g 01/05/2003/31 Rx levetiracetam 500 mg tablet 500 mg PO BID #180 tab 06/17/20 03/31/21 Rx blood sugar diagnostic #200 each 06/27/20 03/31/21 Rx lorazepam 1 mg tablet 0.5 mg PO Q8H PRN #90 tab 06/27/20 03/31/21 Rx gabapentin 300 mg capsule See Rx Instructions .ROUTE 07/29/20 03/31/21 Rx .COMPLEX #360 cap conjugated estrogens 0.625 mg/gram 0.625 mg VAGINAL 2XW #30 g 08/27/20 03/31/21 Rx vaginal cream insulin lispro protamine-lispro 50 unit SUB-Q .COMPLEX #100 ml 10/28/20 03/31/21 Rx 100 unit/mL (75-25) subcutaneous susp ergocalciferol (vitamin D2) 1,250 See Rx Instructions .ROUTE 12/10/20 03/31/21 Rx mcg (50,000 unit) capsule .COMPLEX #12 cap atorvastatin 80 mg tablet 80 mg PO QHS #90 tab 01/01/21 03/31/21 Rx clopidogrel 75 mg tablet 75 mg PO QDAY #90 tab 01/01/21 03/31/21 Rx quetiapine 25 mg tablet 25 - 50 mg PO QHS #180 tab 01/01/21 03/31/21 Rx insulin syringe-needle U-100 1 mL See Rx Instructions .ROUTE 01/24/21 03/31/21 Rx 31 gauge x 5/16" .COMPLEX #100 each baclofen 10 mg tablet See Rx Instructions .ROUTE 02/06/21 03/31/21 Rx .COMPLEX #90 tab fluconazole 100 mg tablet 100 mg PO QDAY #7 tab 02/11/21 03/31/21 Rx hydrocodone 10 mg-acetaminophen 1 tab PO Q4H PRN #90 tab 02/24/21 03/31/21 Rx 325 mg tablet metformin 1,000 mg tablet See Rx Instructions .ROUTE 03/05/21 03/31/21 Rx .COMPLEX #300 tab aspirin 81 mg tablet,delayed 81 mg PO QDAY 03/19/21 03/31/21 History release losartan 25 mg tablet 25 mg PO QDAY 03/25/21 03/31/21 History metoprolol succinate 25 mg 25 mg PO QDAY 03/27/21 03/31/21 History tablet,extended release 24 hr Allergies Allergy/AdvReac Type Severity Reaction Status Date / Time morphine AdvReac Mild Itching Verified 04/01/21 07:04 moxifloxacin [From Avelox] AdvReac Mild skin Verified 04/01/21 07:04 irritation, bright red Physical Examination Vital Signs Vital signs: Temp Pulse Resp BP Pulse Ox 97.4 F 99 H 20 110/63 94 04/01/21 02:52 04/01/21 02:52 04/01/21 02:52 04/01/21 02:52 04/01/21 02:52 General physical appearance General physical exam: well developed, well nourished, no distress, no pain and other (RIGHT groin wound with superficial skin edge necrosis and resolving cellulitis. NO orthostatic symptoms at this time.) Eyes Eye exam: PERRL and normal ocular movement ENT ENT exam: normal pinna, normal nares and no congestion Head Head exam IM: Present atraumatic and normocephalic Neck Neck exam: no masses, no bruits and no venous distension Cardiovascular Cardiovascular exam IM: Present irregular rhythm and systolic murmur Respiratory Respiratory exam: normal expansion, normal respiratory effort and clear to auscultation Abdomen Abdomen: Present soft, non tender, bowel sounds and surgical scars (RIGHT groin surgery site with skin edge necrosis and serous oozing. Periwound inflammation / cellulitis improving.) Integumentary Integumentary: Present other (As above. ( See note on abdomen )) Musculoskeletal Musculoskeletal: Present normal gait Psychiatric Psychiatric: Present oriented to time, oriented to person, oriented to place, speech is normal and memory intact Results Labs Result diagrams: 04/01/21 05:22 04/01/21 05:22 Labs: Abnormal lab results 03/31/21 03/31/21 03/31/21 Range/Units 14:25 14:25 18:02 Hgb (11.2-15.7) g/dL MCHC (31.0-36.0) g/dL Plt Count 459 H (140-440) K/mcL VBG Lactic Acid 4.0 H* 2.4 H (0.5-2.0) mmol/L Carbon Dioxide 20 L (22-30) mmol/L Anion Gap 19.0 H (8.0-16.0) Glucose 247 H (70-105) mg/dL Globulin 3.8 H (2.2-3.7) gm/dL 04/01/21 04/01/21 Range/Units 05:22 05:22 Hgb 10.7 L (11.2-15.7) g/dL MCHC 30.1 L (31.0-36.0) g/dL Plt Count (140-440) K/mcL VBG Lactic Acid (0.5-2.0) mmol/L Carbon Dioxide (22-30) mmol/L Anion Gap (8.0-16.0) Glucose 214 H (70-105) mg/dL Globulin (2.2-3.7) gm/dL Diabetes panel 03/31/21 04/01/21 Range/Units 14:25 05:22 Sodium 140 141 (133-145) mmol/L Potassium 4.2 4.4 (3.3-5.1) mmol/L Chloride 101 106 (96-108) mmol/L Carbon Dioxide 20 L 23 (22-30) mmol/L BUN 13 8 (6-20) mg/dL Creatinine 1.0 0.8 (0.6-1.1) mg/dL Glucose 247 H 214 H (70-105) mg/dL Calcium 9.5 9.0 (8.6-10.4) mg/dL AST 25 18 (<32) U/L ALT 20 17 (<40) U/L Alkaline Phosphatase 78 72 (39-117) U/L Total Protein 7.6 6.9 (5.9-8.4) gm/dL Albumin 3.8 3.5 (3.2-5.2) gm/dL Calcium panel 03/31/21 04/01/21 Range/Units 14:25 05:22 Calcium 9.5 9.0 (8.6-10.4) mg/dL Albumin 3.8 3.5 (3.2-5.2) gm/dL Pituitary panel 03/31/21 04/01/21 Range/Units 14:25 05:22 Sodium 140 141 (133-145) mmol/L Potassium 4.2 4.4 (3.3-5.1) mmol/L Chloride 101 106 (96-108) mmol/L Carbon Dioxide 20 L 23 (22-30) mmol/L BUN 13 8 (6-20) mg/dL Creatinine 1.0 0.8 (0.6-1.1) mg/dL Glucose 247 H 214 H (70-105) mg/dL Calcium 9.5 9.0 (8.6-10.4) mg/dL Adrenal panel 03/31/21 04/01/21 Range/Units 14:25 05:22 Sodium 140 141 (133-145) mmol/L Potassium 4.2 4.4 (3.3-5.1) mmol/L Chloride 101 106 (96-108) mmol/L Carbon Dioxide 20 L 23 (22-30) mmol/L BUN 13 8 (6-20) mg/dL Creatinine 1.0 0.8 (0.6-1.1) mg/dL Glucose 247 H 214 H (70-105) mg/dL Calcium 9.5 9.0 (8.6-10.4) mg/dL Total Bilirubin 0.5 0.5 (0.1-1.0) mg/dL AST 25 18 (<32) U/L ALT 20 17 (<40) U/L Alkaline Phosphatase 78 72 (39-117) U/L Total Protein 7.6 6.9 (5.9-8.4) gm/dL Albumin 3.8 3.5 (3.2-5.2) gm/dL All other labs normal. A/P Narrative A/P Narrative: Assessment: Dizziness Improved / Resolved. RIGHT groin post surgery site infection. Skin edge necrosis. Seroma draining. Cellulitis / improving. NEEDS OR surgery debridement. Plan: S/B Anesthesia, Pre operatively. On Schedule for OR in AM 04/02/2021 I/R/B/C/A and POC discussed with patient and nurses, Time Spent With Patient Time: Total time spent is greater than 50% in coordination of care (as documented) at patient's floor/unit and/or counseling patient: Total time spent with greater than 50% in coordination of care (as documented) at patient's floor/unit and/or counseling patient:: Greater than 35 minutes
[2021-04-01] MEDS: DOCUSATE SODIUM 100 MG CAPSULE PO SCH ×2 (08:51→21:21)
[2021-04-01] MEDS: ASPIRIN 81 MG TAB.CHEW PO SCH (08:52)
[2021-04-01] MEDS: GABAPENTIN 300 MG CAPSULE PO SCH ×3 (08:52→21:21)
[2021-04-01] MEDS: DICLOFENAC SODIUM 1% TOPICAL SCH ×4 (08:52→21:16)
[2021-04-01] MEDS: CLOPIDOGREL 75 MG TABLET PO SCH (08:52)
[2021-04-01] MEDS: levETIRAcetam 500 MG TABLET PO SCH ×2 (08:52→21:21)
[2021-04-01] MEDS ORDERED: CLOPIDOGREL 75 MG TABLET PO SCH (09:00)
[2021-04-01] MEDS ORDERED: INSULIN, 75/25 NPL/LISPRO 1 UNIT/0.01 ML UNIT SQ SCH (09:00)
[2021-04-01] MEDS ORDERED: FLUTICASONE PROPIONATE SPRAY.NAS NS SCH (09:00)
[2021-04-01] MEDS ORDERED: FLUCONAZOLE 100 MG TABLET PO SCH (09:00)
[2021-04-01] MEDS ORDERED: ASPIRIN 81 MG TAB.CHEW PO SCH (09:00)
[2021-04-01] MEDS: FLUTICASONE PROPIONATE SPRAY.NAS NS SCH (09:14)
[2021-04-01] MEDS: INSULIN, 75/25 NPL/LISPRO 1 UNIT/0.01 ML UNIT SQ SCH ×2 (09:56→21:24)
--- NOTE | 2021-04-01 11:15 | Internal Med Progress Note ---
SUBJECTIVE Subjective Patient information: Note initiated : 04/01/21 at 11:13 am Service Date, if different from initiated Date: [] Patient: Lawanda Grant 60 y/o F admitted on 03/31/21 for low bp, tachycardia. Chief Complaint: [right groin surgical site infection] Interval history: History of present illness: Ms. Grant is a 60 year old F history of aortic stenosis status post TAVR on March 12, 2021, congestive heart failure, type 2 diabetes mellitus, presenting with 1 day history of low blood pressure and lightheadedness. Symptoms started this morning on waking with exacerbations factors including any movement and activities. There is no prior similar episodes. She was started on metoprolol extended release 25mg PO twice daily, which was being changed to daily a week ago. She was also placed on a wound VAC for her right groin surgical wound for 1 week after her TAVR surgery. According to patient and , there is still some clear wound discharged since the removal of the wound VAC. She denies any fever or chills. She is complaining of 8.5 out of 10 sharp chest pain as well as 8.5 out of 10 burning right groin pain. Vital signs significant for soft blood pressure 74/57mmHg, labs pending. Dr. Mix consulted for wound management, and he would like me to admit patient for antibiotics therapy for the time being and wound debridement later. 04/01: Afebrile overnight. Blood and wound culture no growth to date. MRSA screen pending. 8.5/10 sharp pain right groin around her surgical site. Denies fever chills or sweating. Constitutional Vitals: Vital Signs Temp Pulse Resp BP Pulse Ox 36.8 C 100 H 22 114/67 93 04/01/21 08:00 04/01/21 08:00 04/01/21 08:00 04/01/21 08:00 04/01/21 08:00 Period Temp Pulse Resp BP Sys/Davidson Pulse Ox Last 24 Hr 36.3 C-36.8 C 86-100 16-26 74-150/37-79 93-97 Intake and Output 03/31/21 04/01/21 04/01/21 21:59 05:59 13:59 Intake Total 550 1500 240 Output Total 450 551 400 Balance 100 949 -160 Weight 116.845 kg Intake & Output: Intake & Output 03/31/21 04/01/21 04/01/21 21:59 05:59 13:59 Intake Total 550 1500 240 Output Total 450 551 400 Balance 100 949 -160 Weight 116.845 kg Intake: IV 550 1500 Sodium Chloride 0.9% 1,000 ml @ 1000 125 mls/hr IV .Q8H [facility] Rx#: [id number] Zosyn 4.5 gm In Dextrose 5% in 50 Water 50 ml @ 100 mls/hr IV ONCE ONE Rx#:[id number] Vancomycin 1,500 mg In Sodium 500 500 Chloride 0.9% 500 ml @ 333.3 mls/hr IV Q12H [facility] Rx#: [id number] Oral 0 240 Output: Void Amount 450 550 400 # of times incontinent of urine 0 1 Other: Meal Breakfast Percent of Meal Consumed 100% Feeding Ability Assist with Tray Set Up Urine Appearance Clear Clear Urine Color Bright Yellow Bright Yellow Straw Urine Odor Normal # Voids 2 1 General appearance: cooperative and no acute distress Head Head exam: Present atraumatic and normocephalic Eye Eye exam: Present EOMI and PERRL ENT ENT exam: Present mucous membranes moist, normal exam and normal external ear exam Neck Neck exam: Present normal inspection; Absent lymphadenopathy, tenderness and thyromegaly Respiratory Respiratory exam: Absent accessory muscle use, respiratory distress and wheezes Cardiovascular Cardiovascular exam: Present normal rate and rhythm; Absent JVD GI/Abdominal GI/Abdominal exam: Present normal bowel sounds and soft; Absent organomegaly and tenderness Extremities Exam Extremities exam: Present full ROM, normal capillary refill and normal inspection; Absent tenderness Neurological Exam Neurological exam: Present alert, CN II-XII intact and oriented X3; Absent motor sensory deficit Psychiatric Psychiatric exam: Present normal affect and normal mood; Absent anxious and depressed Skin Skin exam: Present dry; Absent intact Additional comments: right groin wound with surrounding erythema, tenderness to palpation, no discharge, no swelling. OBJ DATA Labs CBC & Chem 7: 04/01/21 05:22 04/01/21 05:22 Labs: Abnormal Lab Results 04/01/21 04/01/21 03/31/21 05:22 05:22 18:02 Hgb 10.7 L MCHC 30.1 L Plt Count VBG Lactic Acid 2.4 H Carbon Dioxide Anion Gap Glucose 214 H Globulin 03/31/21 03/31/21 14:25 14:25 Hgb MCHC Plt Count 459 H VBG Lactic Acid 4.0 H* Carbon Dioxide 20 L Anion Gap 19.0 H Glucose 247 H Globulin 3.8 H Meds: Medications Acetaminophen (Acetaminophen 325 Mg Tablet) 650 mg PO Q6HP PRN; Protocol PRN Reason: Per Pain Protocol/Fever > 101 Hydrocodone Bitart/Acetaminophen (Hydrocodone/Apap 10/325mg Tablet) 1 tab PO Q4HP PRN; Protocol PRN Reason: pain Last Admin: 04/01/21 09:59 Dose: 1 tab Documented by: Aspirin (Aspirin 81 Mg Tab.Chew) 81 mg PO DAILY [facility] Last Admin: 04/01/21 08:52 Dose: 81 mg Documented by: Atorvastatin Calcium (Atorvastatin 40 Mg Tablet) 80 mg PO HS [facility] Last Admin: 03/31/21 22:27 Dose: 80 mg Documented by: Baclofen (Baclofen 10 Mg Tablet) 10 mg PO TIDP PRN PRN Reason: MUSCLE SPASMS Ceftriaxone Sodium (Ceftriaxone 1 Gm Vial) 1 gm IV DAILY [facility] Clopidogrel Bisulfate (Clopidogrel 75 Mg Tablet) 75 mg PO QDAY [facility] Last Admin: 04/01/21 08:52 Dose: 75 mg Documented by: Dextrose (Dextrose 50% 50 Ml Vial) 0 ml IV UD PRN PRN Reason: Hypoglycemia Diagnostic Test (Pha) (Accu-Chek 1 Each Strip) 1 each FS ACHS [facility] Last Admin: 04/01/21 07:18 Dose: 1 each Documented by: Docusate Sodium (Docusate Sodium 100 Mg Capsule) 100 mg PO BID [facility] Last Admin: 04/01/21 08:51 Dose: 100 mg Documented by: Fluticasone Propionate (Fluticasone Propionate [place].Elie) 2 spray NS QDAY [facility] Last Admin: 04/01/21 09:14 Dose: Not Given Documented by: Gabapentin (Gabapentin 300 Mg Capsule) 300 mg PO BID@0800,1200 [facility] Last Admin: 04/01/21 08:52 Dose: 300 mg Documented by: Gabapentin (Gabapentin 300 Mg Capsule) 600 mg PO HS [facility] Last Admin: 03/31/21 22:24 Dose: 600 mg Documented by: Glucose (Dextrose 31 Gm Oral.Susp) 15 gm PO PRN PRN PRN Reason: Hypoglycemia Sodium Chloride (Sodium Chloride 0.9%) 1,000 mls @ 125 mls/hr IV .Q8H [facility] Last Admin: 04/01/21 07:34 Dose: 125 mls/hr Documented by: Vancomycin HCl 1,500 mg/ (Sodium Chloride) 500 mls @ 333.3 mls/hr IV Q12H [facility] Last Admin: 04/01/21 10:36 Dose: 333 mls/hr Documented by: Insulin Human Lispro (Insulin Lispro 1 Unit/0.01 Ml Unit) 0 unit SQ [facility]; Protocol Last Admin: 04/01/21 07:18 Dose: 2 unit Documented by: Insulin Lispro Protam/Lispro Human (Insulin, 75/25 Npl/Lispro 1 Unit/0.01 Ml Unit) 54 unit SQ DAILY [facility] Last Admin: 04/01/21 09:56 Dose: 54 units Documented by: Insulin Lispro Protam/Lispro Human (Insulin, 75/25 Npl/Lispro 1 Unit/0.01 Ml Unit) 44 unit SQ [facility] Last Admin: 03/31/21 22:26 Dose: Not Given Documented by: Levetiracetam (Levetiracetam 500 Mg Tablet) 500 mg PO BID [facility] Last Admin: 04/01/21 08:52 Dose: 500 mg Documented by: Lorazepam (Lorazepam 0.5 Mg Tablet) 0.5 mg PO Q8HP PRN PRN Reason: Anxiety Ondansetron HCl (Ondansetron 4 Mg/2 Ml Vial) 4 mg IV Q6HP PRN PRN Reason: Nausea And Vomiting Clotrimazole 2% (Vaginal Cream) 1 dose VAG [facility] Last Admin: 03/31/21 22:25 Dose: Not Given Documented by: Diclofenac Sodium [ Voltaren] 1% Topical Gel 2 dose TOPICAL QID [facility] Last Admin: 04/01/21 08:52 Dose: Not Given Documented by: Quetiapine Fumarate (Quetiapine 25 Mg Tablet) 25 mg PO [facility] Last Admin: 03/31/21 22:25 Dose: 25 mg Documented by: Senna (Sennosides 1 Tablet) 2 tab PO [facility] Last Admin: 03/31/21 22:23 Dose: 2 tab Documented by: Sodium Chloride (0.9 % Sodium Chloride 10 Ml Syringe) 10 ml IV Q8 [facility] Last Admin: 04/01/21 06:09 Dose: Not Given Documented by: Vancomycin HCl (Vancomycin Per Pharmacy) 1 order IV UD [facility]; Protocol Zolpidem Tartrate (Zolpidem 5 Mg Tablet) 5 mg PO HSP PRN PRN Reason: Insomnia A/P Assessment and plan (1) Aortic stenosis: Status: Acute Comment: History of TAVR 03/13 in [facility] (2) Postoperative external wound disruption: Status: Acute Qualifiers: Encounter type: initial encounter Qualified Code(s): T81.31XA - Disruption of external operation (surgical) wound, not elsewhere classified, initial encounter (3) Depression: Status: Chronic (4) Anxiety: Status: Chronic (5) BMI 40.0-44.9, adult: Status: Chronic (6) Type 2 diabetes mellitus: Status: Acute (7) CHF (congestive heart failure): Status: Acute Narrative A/P Narrative: Assessment and Plans: 1. Right groin surgical wound infection: Stays in inpatient med surg for antibiotics therapy Consult Dr. Mix for wound debridement scheduled on 04/02 AM NPO after midnight Serial lactic acid Procalcitonin Blood culture, no growth to date Wound culture, no growth to date Vancomycin MRSA screening; okay to d/c Vancomycin when MRSA screen negative Rocephin Tylenol PRN fever [place] PRN moderate pain Morphine IV PRN severe pain cbc w/ auto diff in the AM to trend WBC 2. Type 2 diabetes mellitus: Hold oral hypoglycemics Insulin 75/25 Low-dose correctional scale insulin AC at bedtime Accu-Chek AC HS Hypoglycemia protocol Diabetic diet; NPO after midnight #3 history of aortic stenosis status post TAVR on 03/12/21: Continue aspirin and Plavix Patient is not on any anticoagulation therapy, will verify with the patient #4 history of congestive heart failure: No sign of acute exacerbations Hold metoprolol ER out and losartan given soft BP currently #5 history of essential hypertension's: Hold metoprolol ER out and losartan given soft BP currently #6 morbid obesity: Counseled patient on lifestyle modifications including regular exercise and healthy diet in order to lose weight GI prophylaxis: Not currently indicated DVT prophylaxis: SCDs CODE STATUS: Full code Prognosis: Stable Dispositions: Inpatient MedSurg Time Spent With Patient Time: Total time spent is greater than 50% in coordination of care (as documented) at patient's floor/unit and/or counseling patient: Total time spent with greater than 50% in coordination of care (as documented) at patient's floor/unit and/or counseling patient:: Greater than 35 minutes QUALITY VTE Deep Vein Thrombosis/Pulmonary Embolism Present on Admission: No
[2021-04-01] MEDS ORDERED: IPRATROPIUM/ALBUTEROL 3 ML AMPUL.NEB NEB PRN (14:00)
[2021-04-01] MEDS ORDERED: SCOPOLAMINE 1 PATCH PATCH TOPICAL PRN (14:00)
[2021-04-01] MEDS ORDERED: cefTRIAXone 1 GM VIAL IV ONE (18:00)
[2021-04-01] MEDS ORDERED: cefTRIAXone 1 GM VIAL IV SCH (18:00)
[2021-04-01] MEDS: CLOTRIMAZOLE 2% VAG SCH (21:16)
[2021-04-01] MEDS: ATORVASTATIN 40 MG TABLET PO SCH (21:21)
[2021-04-01] MEDS: QUEtiapine 25 MG TABLET PO SCH (21:21)
[2021-04-01] MEDS: SENNOSIDES 1 TABLET PO SCH (21:21)
[2021-04-02] MEDS: 0.9 % SODIUM CHLORIDE 1,000 ML IV SCH ×2 (02:05→07:52)
[2021-04-02] MEDS: HYDROcodone/APAP 10/325MG TABLET PO PRN ×4 (02:10→19:13)
[2021-04-02] MEDS: 0.9 % SODIUM CHLORIDE 10 ML SYRINGE IV SCH ×5 (04:22→20:50)
[2021-04-02] MEDS ORDERED: CLINDAMYCIN IR SCH (06:00)
[2021-04-02] MEDS ORDERED: GENTAMICIN SULFATE IR SCH (06:00)
[2021-04-02] MEDS ORDERED: cefTRIAXone 2 GM in DEXTROSE 5% IN WATER 50 ML IV SCH (06:00)
[2021-04-02] MEDS ORDERED: SODIUM CHLORIDE IRRIG IR SCH (06:00)
[2021-04-02] MEDS: INSULIN LISPRO 1 UNIT/0.01 ML UNIT SQ SCH ×4 (06:34→20:48)
[2021-04-02 06:56] LABS: Basophils # (Auto) 0.02 K/mcL (0.00-0.30); Basophils % (Auto) 0.5 % (0.0-2.0); Eosinophils # (Auto) 0.18 K/mcL (0.00-0.70); Eosinophils % (Auto) 4.1 % (0.0-7.0); Hematocrit 34.8 % (34.1-44.9); Hemoglobin 10.6 g/dL (11.2-15.7); Lymphocytes # (Auto) 1.55 K/mcL (1.50-4.80); Lymphocytes % (Auto) 35.3 % (15.5-49.0); Mean Cell Volume 96.7 fL (80.0-100.0); Mean Corpuscular HGB Conc 30.5 g/dL (31.0-36.0); Monocytes # (Auto) 0.46 K/mcL (0.10-0.90); Monocytes % (Auto) 10.5 % (1.0-12.0); Neutrophils % (Auto) 49.6 % (38.0-78.0); Platelet Count 345 K/mcL (140-440); Red Cell Distribution Width 13.6 % (11.5-14.5); WBC 4.4 K/mcL (4.5-11.0)
[2021-04-02 07:23] LABS: ALT/SGPT 16 U/L (<40); AST/SGOT 20 U/L (<32); Albumin 3.5 gm/dL (3.2-5.2); Alkaline Phosphatase 70 U/L (39-117); Bilirubin,Total 0.5 mg/dL (0.1-1.0); Blood Urea Nitrogen 6 mg/dL (6-20); Calcium 8.9 mg/dL (8.6-10.4); Carbon Dioxide 23 mmol/L (22-30); Chloride 105 mmol/L (96-108); Globulin 3.5 gm/dL (2.2-3.7); Glomerular Filtration Rate 80; Glucose 207 mg/dL (70-105)
[2021-04-02] MEDS: GABAPENTIN 300 MG CAPSULE PO SCH ×4 (07:52→20:48)
[2021-04-02] MEDS ORDERED: IPRATROPIUM/ALBUTEROL 3 ML AMPUL.NEB NEB PRN (08:22)
[2021-04-02] MEDS ORDERED: MEPERIDINE 25 MG/ML VIAL IV PRN (08:22)
[2021-04-02] MEDS ORDERED: diphenhydrAMINE 50 MG/ML VIAL IV PRN (08:22)
[2021-04-02] MEDS ORDERED: PROMETHAZINE 25 MG/ML VIAL IV PRN (08:22)
[2021-04-02] MEDS ORDERED: fentaNYL 100 MCG/2 ML VIAL IV PRN (08:22)
[2021-04-02] MEDS ORDERED: LACTATED RINGERS 250 ML IV PRN (08:22)
[2021-04-02] MEDS ORDERED: ONDANSETRON 4 MG/2 ML VIAL IV PRN (08:22)
[2021-04-02] MEDS ORDERED: ACETAMINOPHEN 1,000 MG/100 ML BAG IV ONE (08:22)
[2021-04-02] MEDS ORDERED: NALOXONE HCL 0.4 MG/ML VIAL IV PRN (08:22)
--- NOTE | 2021-04-02 08:25 | Brief Operative Note ---
Brief Operative Note Date of procedure: 04/02/21 Pre-op diagnosis: CSSSI RIGHT groin surgical scar site Post-op diagnosis: same Procedure: EXCISION DEBRIDEMENT. Pulse lavage, Tissue for c/s and histology. OPEN packing. Grafts/Implants: No Anesthesia: GLMA Findings: Skin and subcutaneous tissue necrosis. Multiloculated serous abscesses. Wound dimension 10 x 2 x 3.5 CM Surgeon: Zaki Mix Estimated blood loss (cc): 10 Specimens Removed/Pathology: other (Necrotic scar tissue for histology. Deep adipose abscess tisse for c/s.) Condition: stable Disposition: PACU
[2021-04-02] MEDS ORDERED: LACTATED RINGERS 1,000 ML IV SCH (08:30)
[2021-04-02] MEDS: DOCUSATE SODIUM 100 MG CAPSULE PO SCH ×2 (09:21→20:47)
[2021-04-02] MEDS: levETIRAcetam 500 MG TABLET PO SCH ×2 (09:21→20:48)
[2021-04-02] MEDS: ASPIRIN 81 MG TAB.CHEW PO SCH (09:22)
[2021-04-02] MEDS: CLOPIDOGREL 75 MG TABLET PO SCH (09:22)
[2021-04-02] MEDS: FLUTICASONE PROPIONATE SPRAY.NAS NS SCH (09:22)
[2021-04-02] MEDS: INSULIN, 75/25 NPL/LISPRO 1 UNIT/0.01 ML UNIT SQ SCH ×2 (09:22→20:48)
[2021-04-02] MEDS: DICLOFENAC SODIUM 1% TOPICAL SCH ×4 (09:23→20:34)
--- NOTE | 2021-04-02 11:53 | Operative Note ---
DATE OF OPERATION: 04/02/2021 PREOPERATIVE DIAGNOSIS: Complicated skin and skin structure infection, right groin surgical site scar. POSTOPERATIVE DIAGNOSIS: Complicated skin and skin structure infection, right groin surgical site scar. PROCEDURE: Excision, debridement, pulse lavage irrigation. Tissue obtained for culture and sensitivity and the necrotic tissue sent for histology. The wound was packed open. SURGEON: Zaki Mix MD ANESTHESIA: General laryngeal mask airway. HEALTH INFORMATION CODER: Marcel Burroughs CRNA. FINDINGS: Skin and subcutaneous tissue necrosis with multiple loculated serous abscesses involving skin structures and subcutaneous adipose tissue. Final wound dimensions 10 x 2 x 3.5 cm. ESTIMATED BLOOD LOSS: 10 mL. INSTRUMENT COUNTS: Count of swabs, instruments and needles reported to be correct. SPECIMENS: Scar tissue necrosis for histology. Deep abscess adipose tissue for culture and sensitivity. INDICATIONS: This is a lady with a previous history of TAVR. She has multiple comorbid medical problems, which are optimally managed. She was emergently admitted to the hospital with dizziness and cellulitis with necrosis of the wound edges. After discussing her situation with corporate representative performing the procedure in [facility], it was decided that the patient should undergo debridement at this hospital. I spoke with the patient and her friend about the indications, risks, benefits, complications, alternatives to surgery. Informed consent was obtained. Preoperatively, we discussed different case scenarios and possible postoperative course once the abscess is drained and the wound allowed to heal by second intention. PROCEDURE NOTE IN DETAIL: After obtaining informed consent, patient was taken to the operating room. She was placed supine on the operating table. She was anesthetized uneventfully. Timeout was called. Intravenous antibiotics were given. The right lower quadrant of abdomen, thigh, groin and suprapubic area and the contralateral groin, thigh and suprapubic area were widely cleaned, prepped, and draped in the standard fashion. This wound was too extensive for any local anesthetic to be administered. Using sharp tooth pickup and a Metzenbaum scissor all the necrotic tissue was carefully excised until healthy backbleeding was encountered from the edges. Later, I carried out digital exploration and broke down all the loculations and evacuated abscess contents. Necrotic tissue was sent for histology. Part of the abscess wall adipose tissue was sent for culture and sensitivity. This wound cavity and loculated collections sites were copiously washed and irrigated with pulse lavage irrigation using 3 liters of normal saline, 600 mg of clindamycin and 80 mg of gentamicin solution. We have packed this wound open with Xeroform gauze and a 2 inch Kerlix gauze soaked in Betadine solution. Two mattress sutures of #1 Stravix were placed to hold this packing in place. It was further reinforced with 4 x 4 gauze pieces, Medipore ABD pad, and Medipore. She recovered from operation uneventfully and was taken to in stable condition. Post-procedure, I met with the patient's friend and caregiver, Bro Mcdermott and updated him about patient's condition and intraoperative findings. I discussed postoperative management with Chung Fierro, Wound Care Nurse, and Dr. Rodarte, Hospitalist. VD:kacie Job ID: [id number] Doc ID: [id number] Zaki Mix MD [facility]
--- NOTE | 2021-04-02 12:39 | Internal Med Progress Note ---
SUBJECTIVE Subjective Patient information: Note initiated : 04/02/21 at 12:36 pm Service Date, if different from initiated Date: [] Patient: Lawanda Grant 60 y/o F admitted on 03/31/21 for low bp, tachycardia. Chief Complaint: [right groin surgical wound infection] Interval history: History of present illness: Ms. Grant is a 60 year old F history of aortic stenosis status post TAVR on March 12, 2021, congestive heart failure, type 2 diabetes mellitus, presenting with 1 day history of low blood pressure and lightheadedness. Symptoms started this morning on waking with exacerbations factors including any movement and activities. There is no prior similar episodes. She was started on metoprolol extended release 25mg PO twice daily, which was being changed to daily a week ago. She was also placed on a wound VAC for her right groin surgical wound for 1 week after her TAVR surgery. According to patient and , there is still some clear wound discharged since the removal of the wound VAC. She denies any fever or chills. She is complaining of 8.5 out of 10 sharp chest pain as well as 8.5 out of 10 burning right groin pain. Vital signs significant for soft blood pressure 74/57mmHg, labs pending. Dr. Mix consulted for wound management, and he would like me to admit patient for antibiotics therapy for the time being and wound debridement later. 11: Afebrile overnight. Blood and wound culture no growth to date. MRSA screen pending. 8.5/10 sharp pain right groin around her surgical site. Denies fever chills or sweating. 04/02: Afebrile overnight. s/p wound debridement by Dr. Mix earlier this morning. MRSA screen negative. Initial blood and wound cultures no growth to date. 8.5/10 sharp pain right groin around her surgical site. Denies fever chills or sweating. Constitutional Vitals: Vital Signs Temp Pulse Resp BP Pulse Ox 36.4 C 111 H 16 158/76 96 04/02/21 08:30 04/02/21 08:55 04/02/21 08:55 04/02/21 08:55 04/02/21 08:55 Period Temp Pulse Resp BP Sys/Davidson Pulse Ox Last 24 Hr 36.4 C-36.7 C 79-111 10-24 110-182/68-94 94-100 Intake and Output 04/01/21 04/02/21 04/02/21 21:59 05:59 13:59 Intake Total 2060 200 150 Output Total 1175 1001 1050 Balance 885 -801 -900 Weight 116.891 kg Intake & Output: Intake & Output 04/01/21 04/02/21 04/02/21 21:59 05:59 13:59 Intake Total 2060 200 150 Output Total 1175 1001 1050 Balance 885 801 -900 Weight 116.891 kg Intake: IV 1000 150 Sodium Chloride 0.9% 1,000 ml @ 1000 125 mls/hr IV .Q8H [facility] Rx#: [id number] Rocephin 2 gm In Dextrose 5% in 50 Water 50 ml @ 100 mls/hr IV PREOP [facility] Rx#:[id number] Oral 1060 200 Output: Void Amount 1175 1000 1050 # of times incontinent of urine 1 Other: Meal Dinner jello Percent of Meal Consumed 100% 100% Feeding Ability Assist with Tray Set Up Independent Urine Appearance Clear Clear Urine Color Bright Yellow Pale Straw Urine Odor Normal Normal General appearance: cooperative and no acute distress Head Head exam: Present atraumatic and normocephalic Eye Eye exam: Present EOMI and PERRL ENT ENT exam: Present mucous membranes moist, normal exam and normal external ear exam Neck Neck exam: Present normal inspection; Absent lymphadenopathy, tenderness and thyromegaly Respiratory Respiratory exam: Absent accessory muscle use, respiratory distress and wheezes Cardiovascular Cardiovascular exam: Present normal rate and rhythm; Absent JVD GI/Abdominal GI/Abdominal exam: Present normal bowel sounds and soft; Absent organomegaly and tenderness Extremities Exam Extremities exam: Present full ROM, normal capillary refill and normal inspection; Absent tenderness Neurological Exam Neurological exam: Present alert, CN II-XII intact and oriented X3; Absent motor sensory deficit Psychiatric Psychiatric exam: Present normal affect and normal mood; Absent anxious and depressed Skin Skin exam: Present dry; Absent intact Additional comments: Right groin covered by surgical dressing OBJ DATA Labs CBC & Chem 7: 04/02/21 05:54 04/02/21 05:54 Labs: Abnormal Lab Results 04/02/21 04/02/21 04/01/21 05:54 05:54 05:22 WBC 4.4 L Hgb 10.6 L MCHC 30.5 L Plt Count VBG Lactic Acid Carbon Dioxide Anion Gap Glucose 207 H 214 H Globulin 04/01/21 03/31/21 03/31/21 05:22 18:02 14:25 WBC Hgb 10.7 L MCHC 30.1 L Plt Count VBG Lactic Acid 2.4 H 4.0 H* Carbon Dioxide 20 L Anion Gap 19.0 H Glucose 247 H Globulin 3.8 H 03/31/21 14:25 WBC Hgb MCHC Plt Count 459 H VBG Lactic Acid Carbon Dioxide Anion Gap Glucose Globulin Meds: Medications Acetaminophen (Acetaminophen 325 Mg Tablet) 650 mg PO Q6HP PRN; Protocol PRN Reason: Per Pain Protocol/Fever > 101 Hydrocodone Bitart/Acetaminophen (Hydrocodone/Apap 10/325mg Tablet) 1 tab PO Q4HP PRN; Protocol PRN Reason: pain Last Admin: 04/02/21 09:21 Dose: 1 tab Documented by: Aspirin (Aspirin 81 Mg Tab.Chew) 81 mg PO DAILY [facility] Last Admin: 04/02/21 09:22 Dose: 81 mg Documented by: Atorvastatin Calcium (Atorvastatin 40 Mg Tablet) 80 mg PO HS [facility] Last Admin: 04/01/21 21:21 Dose: 80 mg Documented by: Baclofen (Baclofen 10 Mg Tablet) 10 mg PO TIDP PRN PRN Reason: MUSCLE SPASMS Ceftriaxone Sodium (Ceftriaxone 1 Gm Vial) 1 gm IV DAILY [facility] Clopidogrel Bisulfate (Clopidogrel 75 Mg Tablet) 75 mg PO QDAY [facility] Last Admin: 04/02/21 09:22 Dose: 75 mg Documented by: Dextrose (Dextrose 50% 50 Ml Vial) 0 ml IV UD PRN PRN Reason: Hypoglycemia Diagnostic Test (Pha) (Accu-Chek 1 Each Strip) 1 each FS ACHS [facility] Last Admin: 04/02/21 11:54 Dose: 1 each Documented by: Docusate Sodium (Docusate Sodium 100 Mg Capsule) 100 mg PO BID [facility] Last Admin: 04/02/21 09:21 Dose: 100 mg Documented by: Fluticasone Propionate (Fluticasone Propionate [place].Elie) 2 spray NS QDAY [facility] Last Admin: 04/02/21 09:22 Dose: Not Given Documented by: Gabapentin (Gabapentin 300 Mg Capsule) 300 mg PO BID@0800,1200 [facility] Last Admin: 04/02/21 11:55 Dose: 300 mg Documented by: Gabapentin (Gabapentin 300 Mg Capsule) 600 mg PO [facility] Last Admin: 04/01/21 21:21 Dose: 600 mg Documented by: Glucose (Dextrose 31 Gm Oral.Susp) 15 gm PO PRN PRN PRN Reason: Hypoglycemia Sodium Chloride (Sodium Chloride 0.9%) 1,000 mls @ 125 mls/hr IV .Q8H [facility] Last Admin: 04/02/21 07:52 Dose: Not Given Documented by: Ceftriaxone Sodium 2 gm/ (Dextrose) 50 mls @ 100 mls/hr IV PREOP [facility] Stop: 04/02/21 15:00 Last Infusion: 04/02/21 07:30 Dose: Infused Documented by: Clindamycin Phosphate 600 mg/Gentamicin Sulfate 80 mg/Sodium Chloride 3,006 mls @ 0 mls/hr IR ONCE [facility] Stop: 04/02/21 17:00 Last Admin: 04/02/21 08:15 Dose: 3,000 mls/hr Documented by: Insulin Human Lispro (Insulin Lispro 1 Unit/0.01 Ml Unit) 0 unit SQ [facility]; Protocol Last Admin: 04/02/21 11:54 Dose: 6 unit Documented by: Insulin Lispro Protam/Lispro Human (Insulin, 75/25 Npl/Lispro 1 Unit/0.01 Ml Unit) 54 unit SQ DAILY [facility] Last Admin: 04/02/21 09:22 Dose: 54 units Documented by: Insulin Lispro Protam/Lispro Human (Insulin, 75/25 Npl/Lispro 1 Unit/0.01 Ml Unit) 44 unit SQ [facility] Last Admin: 04/01/21 21:24 Dose: Not Given Documented by: Levetiracetam (Levetiracetam 500 Mg Tablet) 500 mg PO BID [facility] Last Admin: 04/02/21 09:21 Dose: 500 mg Documented by: Lorazepam (Lorazepam 0.5 Mg Tablet) 0.5 mg PO Q8HP PRN PRN Reason: Anxiety Ondansetron HCl (Ondansetron 4 Mg/2 Ml Vial) 4 mg IV Q6HP PRN PRN Reason: Nausea And Vomiting Clotrimazole 2% (Vaginal Cream) 1 dose VAG [facility] Last Admin: 04/01/21 21:16 Dose: Not Given Documented by: Diclofenac Sodium [ Voltaren] 1% Topical Gel 2 dose TOPICAL QID [facility] Last Admin: 04/02/21 09:23 Dose: Not Given Documented by: Quetiapine Fumarate (Quetiapine 25 Mg Tablet) 25 mg PO [facility] Last Admin: 04/01/21 21:21 Dose: 25 mg Documented by: Scopolamine (Scopolamine 1 Patch Patch) 1 patch TOPICAL PREOP PRN PRN Reason: Nausea And Vomiting Senna (Sennosides 1 Tablet) 2 tab PO [facility] Last Admin: 04/01/21 21:21 Dose: 2 tab Documented by: Sodium Chloride (0.9 % Sodium Chloride 10 Ml Syringe) 10 ml IV Q8 [facility] Last Admin: 04/02/21 04:22 Dose: Not Given Documented by: Sodium Chloride (0.9 % Sodium Chloride 10 Ml Syringe) 10 ml IV Q8 [facility] Zolpidem Tartrate (Zolpidem 5 Mg Tablet) 5 mg PO HSP PRN PRN Reason: Insomnia A/P Assessment and plan (1) Aortic stenosis: Status: Acute Comment: History of TAVR 03/[address] [facility] (2) Postoperative external wound disruption: Status: Acute Qualifiers: Encounter type: initial encounter Qualified Code(s): T81.31XA - Disruption of external operation (surgical) wound, not elsewhere classified, initial encounter (3) Depression: Status: Chronic (4) Anxiety: Status: Chronic (5) BMI 40.0-44.9, adult: Status: Chronic (6) Type 2 diabetes mellitus: Status: Acute (7) CHF (congestive heart failure): Status: Acute Narrative A/P Narrative: Assessment and Plans: 1. Right groin surgical wound infection: Stays in inpatient med surg for antibiotics therapy s/p right groin surgical wound debridement by Dr. Mix morning of 04/02. Keep wound dressing for 48 hours Serial lactic acid Procalcitonin Blood culture, no growth to date Wound culture, no growth to date MRSA screen negative, d/c Vancomycin Rocephin Tylenol PRN fever [place] PRN moderate pain Morphine IV PRN severe pain cbc w/ auto diff in the AM to trend WBC 2. Type 2 diabetes mellitus: Hold oral hypoglycemics Insulin 75/25 Low-dose correctional scale insulin AC at bedtime Accu-Chek AC HS Hypoglycemia protocol Diabetic diet #3 history of aortic stenosis status post TAVR on 03/12/21: Continue aspirin and Plavix Patient is not on any anticoagulation therapy, will verify with the patient #4 history of congestive heart failure: No sign of acute exacerbations Hold metoprolol ER out and losartan given soft BP currently #5 history of essential hypertension's: Hold metoprolol ER out and losartan given soft BP currently #6 Morbid obesity: Counseled patient on lifestyle modifications including regular exercise and healthy diet in order to lose weight GI prophylaxis: Not currently indicated DVT prophylaxis: Lovenox CODE STATUS: Full code Prognosis: Stable Dispositions: Inpatient MedSurg Time Spent With Patient Time: Total time spent is greater than 50% in coordination of care (as documented) at patient's floor/unit and/or counseling patient: QUALITY VTE Deep Vein Thrombosis/Pulmonary Embolism Present on Admission: No
[2021-04-02] MEDS: ENOXAPARIN 40 MG/0.4 ML SYRINGE SQ SCH (13:11)
[2021-04-02] MEDS: CLOTRIMAZOLE 2% VAG SCH (20:34)
[2021-04-02] MEDS: SENNOSIDES 1 TABLET PO SCH (20:47)
[2021-04-02] MEDS: ATORVASTATIN 40 MG TABLET PO SCH (20:49)
[2021-04-02] MEDS: POLYETHYLENE GLYCOL 3350 17 GM PACKET PO PRN (20:49)
[2021-04-02] MEDS: QUEtiapine 25 MG TABLET PO SCH (20:50)
[2021-04-03] MEDS: HYDROcodone/APAP 10/325MG TABLET PO PRN ×6 (03:18→23:16)
[2021-04-03] MEDS: 0.9 % SODIUM CHLORIDE 10 ML SYRINGE IV SCH ×6 (04:51→21:02)
[2021-04-03 06:56] LABS: Basophils # (Auto) 0.02 K/mcL (0.00-0.30); Basophils % (Auto) 0.3 % (0.0-2.0); Eosinophils # (Auto) 0.03 K/mcL (0.00-0.70); Eosinophils % (Auto) 0.4 % (0.0-7.0); Hematocrit 34.7 % (34.1-44.9); Hemoglobin 10.8 g/dL (11.2-15.7); Lymphocytes # (Auto) 1.61 K/mcL (1.50-4.80); Lymphocytes % (Auto) 22.8 % (15.5-49.0); Mean Cell Volume 94.8 fL (80.0-100.0); Mean Corpuscular HGB Conc 31.1 g/dL (31.0-36.0); Mean Platelet Volume 10.3 fL (7.4-10.4); Monocytes # (Auto) 0.69 K/mcL (0.10-0.90); Monocytes % (Auto) 9.8 % (1.0-12.0); Neutrophils % (Auto) 66.7 % (38.0-78.0); Platelet Count 378 K/mcL (140-440); RBC 3.66 M/mcL (3.59-5.38); Red Cell Distribution Width 13.6 % (11.5-14.5); WBC 7.1 K/mcL (4.5-11.0)
[2021-04-03] MEDS: GABAPENTIN 300 MG CAPSULE PO SCH ×3 (07:12→20:57)
[2021-04-03] MEDS: INSULIN LISPRO 1 UNIT/0.01 ML UNIT SQ SCH ×4 (07:13→20:59)
[2021-04-03 07:31] LABS: Prealbumin 23.4 mg/dL (20.0-40.0)
[2021-04-03 07:54] LABS: ALT/SGPT 89 U/L (<40); AST/SGOT 143 U/L (<32); Albumin 3.6 gm/dL (3.2-5.2); Alkaline Phosphatase 94 U/L (39-117); Bilirubin,Total 1.6 mg/dL (0.1-1.0); Blood Urea Nitrogen 13 mg/dL (6-20); Calcium 8.2 mg/dL (8.6-10.4); Carbon Dioxide 22 mmol/L (22-30); Chloride 103 mmol/L (96-108); Globulin 1.8 gm/dL (2.2-3.7); Glomerular Filtration Rate 80; Glucose 106 mg/dL (70-105); Thyroid Stimulating Hormone 1.44 uIU/mL (0.27-5.01)
[2021-04-03] MEDS: FLUTICASONE PROPIONATE SPRAY.NAS NS SCH (08:28)
[2021-04-03] MEDS: DICLOFENAC SODIUM 1% TOPICAL SCH ×4 (08:29→21:01)
[2021-04-03] MEDS: DOCUSATE SODIUM 100 MG CAPSULE PO SCH ×2 (08:36→20:56)
[2021-04-03] MEDS: LOSARTAN 25 MG TABLET PO SCH (08:36)
[2021-04-03] MEDS: METOPROLOL SUCCINATE 25 MG TAB.XL.24H PO SCH (08:36)
[2021-04-03] MEDS: ASPIRIN 81 MG TAB.CHEW PO SCH (08:39)
[2021-04-03] MEDS: INSULIN, 75/25 NPL/LISPRO 1 UNIT/0.01 ML UNIT SQ SCH ×2 (08:39→20:59)
[2021-04-03] MEDS: levETIRAcetam 500 MG TABLET PO SCH ×2 (08:41→20:56)
[2021-04-03] MEDS: ENOXAPARIN 40 MG/0.4 ML SYRINGE SQ SCH (08:47)
[2021-04-03] MEDS: CLOPIDOGREL 75 MG TABLET PO SCH (08:47)
[2021-04-03] MEDS: cefTRIAXone 1 GM VIAL IV SCH (08:55)
[2021-04-03 09:06] LABS: Estimated Average Glucose(eAG) 148 mg/dL; Hemoglobin A1C 6.8 % Hgb (4.0-6.0)
--- NOTE | 2021-04-03 11:29 | Internal Med Progress Note ---
SUBJECTIVE Subjective Patient information: Note initiated : 04/03/21 at 11:24 am Service Date, if different from initiated Date: [] Patient: Lawanda Grant 60 y/o F admitted on 03/31/21 for low bp, tachycardia. Chief Complaint: [right groin surgical wound infection] Interval history: History of present illness: Ms. Grant is a 60 year old F history of aortic stenosis status post TAVR on March 12, 2021, congestive heart failure, type 2 diabetes mellitus, presenting with 1 day history of low blood pressure and lightheadedness. Symptoms started this morning on waking with exacerbations factors including any movement and activities. There is no prior similar episodes. She was started on metoprolol extended release 25mg PO twice daily, which was being changed to daily a week ago. She was also placed on a wound VAC for her right groin surgical wound for 1 week after her TAVR surgery. According to patient and , there is still some clear wound discharged since the removal of the wound VAC. She denies any fever or chills. She is complaining of 8.5 out of 10 sharp chest pain as well as 8.5 out of 10 burning right groin pain. Vital signs significant for soft blood pressure 74/57mmHg, labs pending. Dr. Mix consulted for wound management, and he would like me to admit patient for antibiotics therapy for the time being and wound debridement later. 04/01: Afebrile overnight. Blood and wound culture no growth to date. MRSA screen pending. 8.5/10 sharp pain right groin around her surgical site. Denies fever chills or sweating. 04/02: Afebrile overnight. s/p wound debridement by Dr. Mix earlier this morning. MRSA screen negative. Initial blood and wound cultures no growth to date. 8.5/10 sharp pain right groin around her surgical site. Denies fever chills or sweating. 04/03: Afebrile overnight. Blood culture no growth to date. Wound culture from 03/31 growing gram negative bacillus. 8.5/10 sharp pain right groin around her surgical site. Denies fever chills or sweating. Denies chest pain. Constitutional Vitals: Vital Signs Temp Pulse Resp BP Pulse Ox 36.2 C 86 20 147/78 96 04/03/21 07:03 04/03/21 07:03 04/03/21 07:03 04/03/21 07:03 04/03/21 07:03 Period Temp Pulse Resp BP Sys/Davidson Pulse Ox Last 24 Hr 35.9 C-36.8 C 86-108 18-20 86-147/54-78 92-96 Intake and Output 04/02/21 04/03/21 04/03/21 21:59 05:59 13:59 Intake Total 620 500 120 Output Total 1100 325 200 Balance -480 175 -80 Weight 116.8 kg Intake & Output: Intake & Output 04/02/21 04/03/21 04/03/21 21:59 05:59 13:59 Intake Total 620 500 120 Output Total 1100 325 200 Balance -480 175 -80 Weight 116.8 kg Intake: Oral 620 500 120 Output: Void Amount 1100 325 200 # of times incontinent of urine 0 Other: Meal Dinner Breakfast Percent of Meal Consumed 100% 100% Feeding Ability Assist with Tray Set Up Independent Urine Appearance Clear Clear Clear Urine Color Bright Yellow Bright Yellow Bright Yellow Urine Odor Normal Strong Stool Size Small Stool Color Brown Stool Consistency Formed # Bowel Movements 1 General appearance: cooperative and no acute distress Head Head exam: Present atraumatic and normocephalic Eye Eye exam: Present EOMI and PERRL ENT ENT exam: Present mucous membranes moist, normal exam and normal external ear exam Neck Neck exam: Present normal inspection; Absent lymphadenopathy, tenderness and thy romegaly Respiratory Respiratory exam: Absent accessory muscle use, respiratory distress and wheezes Cardiovascular Cardiovascular exam: Present normal rate and rhythm; Absent JVD GI/Abdominal GI/Abdominal exam: Present normal bowel sounds and soft; Absent organomegaly and tenderness Extremities Exam Extremities exam: Present full ROM, normal capillary refill and normal inspection; Absent tenderness Neurological Exam Neurological exam: Present alert, CN II-XII intact and oriented X3; Absent motor sensory deficit Psychiatric Psychiatric exam: Present normal affect and normal mood; Absent anxious and depressed Skin Skin exam: Present dry; Absent intact Additional comments: right groin covered by surgical dressing OBJ DATA Labs CBC & Chem 7: 04/03/21 05:31 04/03/21 05:31 Labs: Abnormal Lab Results 04/03/21 04/03/21 04/03/21 05:31 05:31 05:31 WBC Hgb 10.8 L MCHC Plt Count VBG Lactic Acid Carbon Dioxide Anion Gap Glucose 106 H Hemoglobin A1c 6.8 H Calcium 8.2 L Total Bilirubin 1.6 H AST 143 H ALT 89 H C-Reactive Protein 1.50 H Total Protein 5.4 L Globulin 1.8 L 04/02/21 04/02/21 04/01/21 05:54 05:54 05:22 WBC 4.4 L Hgb 10.6 L MCHC 30.5 L Plt Count VBG Lactic Acid Carbon Dioxide Anion Gap Glucose 207 H 214 H Hemoglobin A1c Calcium Total Bilirubin AST ALT C-Reactive Protein Total Protein Globulin 04/01/21 03/31/21 03/31/21 05:22 18:02 14:25 WBC Hgb 10.7 L MCHC 30.1 L Plt Count VBG Lactic Acid 2.4 H 4.0 H* Carbon Dioxide 20 L Anion Gap 19.0 H Glucose 247 H Hemoglobin A1c Calcium Total Bilirubin AST ALT C-Reactive Protein Total Protein Globulin 3.8 H 03/31/21 14:25 WBC Hgb MCHC Plt Count 459 H VBG Lactic Acid Carbon Dioxide Anion Gap Glucose Hemoglobin A1c Calcium Total Bilirubin AST ALT C-Reactive Protein Total Protein Globulin Meds: Medications Acetaminophen (Acetaminophen 325 Mg Tablet) 650 mg PO Q6HP PRN; Protocol PRN Reason: Per Pain Protocol/Fever > 101 Hydrocodone Bitart/Acetaminophen (Hydrocodone/Apap 10/325mg Tablet) 1 tab PO Q4HP PRN; Protocol PRN Reason: pain Last Admin: 04/03/21 10:56 Dose: 1 tab Documented by: Aspirin (Aspirin 81 Mg Tab.Chew) 81 mg PO DAILY [facility] Last Admin: 04/03/21 08:39 Dose: 81 mg Documented by: Atorvastatin Calcium (Atorvastatin 40 Mg Tablet) 80 mg PO HS [facility] Last Admin: 04/02/21 20:49 Dose: 80 mg Documented by: Baclofen (Baclofen 10 Mg Tablet) 10 mg PO TIDP PRN PRN Reason: MUSCLE SPASMS Ceftriaxone Sodium (Ceftriaxone 1 Gm Vial) 1 gm IV DAILY [facility] Last Admin: 04/03/21 08:55 Dose: 1 gm Documented by: Clopidogrel Bisulfate (Clopidogrel 75 Mg Tablet) 75 mg PO QDAY [facility] Last Admin: 04/03/21 08:47 Dose: 75 mg Documented by: Dextrose (Dextrose 50% 50 Ml Vial) 0 ml IV UD PRN PRN Reason: Hypoglycemia Diagnostic Test (Pha) (Accu-Chek 1 Each Strip) 1 each FS [facility] Last Admin: 04/03/21 07:06 Dose: 1 each Documented by: Docusate Sodium (Docusate Sodium 100 Mg Capsule) 100 mg PO BID [facility] Last Admin: 04/03/21 08:36 Dose: 100 mg Documented by: Enoxaparin Sodium (Enoxaparin 40 Mg/0.4 Ml Syringe) 40 mg SQ DAILY [facility] Last Admin: 04/03/21 08:47 Dose: 40 mg Documented by: Fluticasone Propionate (Fluticasone Propionate Pyatt.Elie) 2 spray NS QDAY [facility] Last Admin: 04/03/21 08:28 Dose: Not Given Documented by: Gabapentin (Gabapentin 300 Mg Capsule) 300 mg PO BID@0800,1200 [facility] Last Admin: 04/03/21 07:12 Dose: 300 mg Documented by: Gabapentin (Gabapentin 300 Mg Capsule) 600 mg PO [facility] Last Admin: 04/02/21 20:48 Dose: 600 mg Documented by: Glucose (Dextrose 31 Gm Oral.Susp) 15 gm PO PRN PRN PRN Reason: Hypoglycemia Insulin Human Lispro (Insulin Lispro 1 Unit/0.01 Ml Unit) 0 unit SQ [facility]; Protocol Last Admin: 04/03/21 07:13 Dose: 1 unit Documented by: Insulin Lispro Protam/Lispro Human (Insulin, 75/25 Npl/Lispro 1 Unit/0.01 Ml Unit) 54 unit SQ DAILY [facility] Last Admin: 04/03/21 08:39 Dose: 54 units Documented by: Insulin Lispro Protam/Lispro Human (Insulin, 75/25 Npl/Lispro 1 Unit/0.01 Ml Unit) 44 unit SQ [facility] Last Admin: 04/02/21 20:48 Dose: 44 unit Documented by: Levetiracetam (Levetiracetam 500 Mg Tablet) 500 mg PO BID [facility] Last Admin: 04/03/21 08:41 Dose: 500 mg Documented by: Lorazepam (Lorazepam 0.5 Mg Tablet) 0.5 mg PO Q8HP PRN PRN Reason: Anxiety Losartan Potassium (Losartan 25 Mg Tablet) 25 mg PO QDAY [facility] Last Admin: 04/03/21 08:36 Dose: 25 mg Documented by: Metoprolol Succinate (Metoprolol Succinate 25 Mg Tab.Xl.24h) 25 mg PO QDAY [facility] Last Admin: 04/03/21 08:36 Dose: 25 mg Documented by: Ondansetron HCl (Ondansetron 4 Mg/2 Ml Vial) 4 mg IV Q6HP PRN PRN Reason: Nausea And Vomiting Clotrimazole 2% (Vaginal Cream) 1 dose VAG [facility] Last Admin: 04/02/21 20:34 Dose: Not Given Documented by: Diclofenac Sodium [ Voltaren] 1% Topical Gel 2 dose TOPICAL QID [facility] Last Admin: 04/03/21 08:29 Dose: Not Given Documented by: Polyethylene Glycol (Polyethylene Glycol 3350 17 Gm Packet) 17 gm PO DAILYP PRN PRN Reason: Constipation Last Admin: 04/02/21 20:49 Dose: 17 gm Documented by: Quetiapine Fumarate (Quetiapine 25 Mg Tablet) 25 mg PO [facility] Last Admin: 04/02/21 20:50 Dose: 25 mg Documented by: Scopolamine (Scopolamine 1 Patch Patch) 1 patch TOPICAL PREOP PRN PRN Reason: Nausea And Vomiting Senna (Sennosides 1 Tablet) 2 tab PO [facility] Last Admin: 04/02/21 20:47 Dose: 2 tab Documented by: Sodium Chloride (0.9 % Sodium Chloride 10 Ml Syringe) 10 ml IV Q8 [facility] Last Admin: 04/03/21 04:52 Dose: 10 ml Documented by: Sodium Chloride (0.9 % Sodium Chloride 10 Ml Syringe) 10 ml IV Q8 [facility] Last Admin: 04/03/21 04:51 Dose: Not Given Documented by: Zolpidem Tartrate (Zolpidem 5 Mg Tablet) 5 mg PO HSP PRN PRN Reason: Insomnia A/P Assessment and plan (1) Aortic stenosis: Status: Acute Comment: History of TAVR 03/13 in [facility] (2) Postoperative external wound disruption: Status: Acute Qualifiers: Encounter type: initial encounter Qualified Code(s): T81.31XA - Disruption of external operation (surgical) wound, not elsewhere classified, initial encounter (3) Depression: Status: Chronic (4) Anxiety: Status: Chronic (5) BMI 40.0-44.9, adult: Status: Chronic (6) Type 2 diabetes mellitus: Status: Acute (7) CHF (congestive heart failure): Status: Acute Narrative A/P Narrative: Assessment and Plans: 1. Right groin surgical wound infection: Stays in inpatient med surg for antibiotics therapy s/p right groin surgical wound debridement by Dr. Mix morning of 04/02. Keep wound dressing for 48 hours Serial lactic acid Procalcitonin Blood culture, no growth to date Wound culture from 03/31 growing gram negative bacillus Intra-operative wound culture from 04/02 no growth to date MRSA screen negative, d/c Vancomycin Rocephin Tylenol PRN fever Nelson PRN moderate pain Morphine IV PRN severe pain cbc w/ auto diff in the AM to trend WBC 2. Type 2 diabetes mellitus: Hold oral hypoglycemics Insulin 75/25 Low-dose correctional scale insulin AC at bedtime Accu-Chek AC HS Hypoglycemia protocol Diabetic diet #3 history of aortic stenosis status post TAVR on 03/12/21: Continue aspirin and Plavix Patient is not on any anticoagulation therapy, will verify with the patient #4 history of congestive heart failure: No sign of acute exacerbations Hold metoprolol ER out and losartan given soft BP currently #5 history of essential hypertension's: Hold metoprolol ER out and losartan given soft BP currently #6 Morbid obesity: Counseled patient on lifestyle modifications including regular exercise and healthy diet in order to lose weight GI prophylaxis: Not currently indicated DVT prophylaxis: Lovenox CODE STATUS: DNI DNR Prognosis: Stable Dispositions: Inpatient MedSurg Time Spent With Patient Time: Total time spent is greater than 50% in coordination of care (as documented) at patient's floor/unit and/or counseling patient: QUALITY VTE Deep Vein Thrombosis/Pulmonary Embolism Present on Admission: No
--- NOTE | 2021-04-03 12:34 | Surgical Pathology Report ---
Histology Microscopic Diagnosis Specimen A- SKIN AND SOFT TISSUE, RIGHT GROIN, SUBMITTED "SCAR TISSUE", EXCISION: --- ULCERATED PARTIALLY NECROTIC SKIN AND SOFT TISSUE WITH ASSOCIATED ACUTE AND CHRONIC INFLAMMATION. --- NO MALIGNANCY IDENTIFIED. (DMT) Clinical History Wound right groin. Gross Description Received in formalin labeled scar tissue right groin, is a 7.6 x 1.3 x 0.3 cm fragment of soft maldonado-leigh tissue. The margin is inked black. The specimen is sectioned. Drywall Carrier portions submitted in one cassette. ([id number]) Electronically Signed Malik Valenzuela MD, FCAP Electronically Signed 04/03/2021 12:33
--- NOTE | 2021-04-03 17:18 | General Surgery Progress Note ---
SUBJECTIVE Subjective Patient information: Note initiated : 04/03/21 at 5:15 pm Service Date, if different from initiated Date: [] Patient: Lawanda Grant 60 y/o F admitted on 03/31/21 for low bp, tachycardia. Chief Complaint: [] Additional PMFSH (Level 3 Only): POD # 1. Patient seen on rounds with Chung Eisenberg RN. Patient had an uneventful night, Constitutional Vitals: Vital Signs Temp Pulse Resp BP Pulse Ox 98.2 F 83 16 127/71 93 04/03/21 15:47 04/03/21 15:47 04/03/21 15:47 04/03/21 15:47 04/03/21 15:47 Period Temp Pulse Resp BP Sys/Davidson Pulse Ox Last 24 Hr 96.7 F-98.2 F 83-104 16-20 86-147/54-78 92-96 Intake and Output 04/03/21 04/03/21 04/03/21 05:59 13:59 21:59 Intake Total 500 600 Output Total 325 200 Balance 175 400 Weight 257 lb 8 oz Patient Weight 04/04/21 05:59 Weight 257 lb 8 oz Intake & Output: Intake & Output 04/03/21 04/03/21 04/03/21 05:59 13:59 21:59 Intake Total 500 600 Output Total 325 200 Balance 175 400 Weight 257 lb 8 oz Intake: Oral 500 600 Output: Void Amount 325 200 Other: Meal Lunch Percent of Meal Consumed 75% Feeding Ability Independent Urine Appearance Clear Clear Urine Color Bright Yellow Bright Yellow Urine Odor Strong Stool Size Small Stool Color Brown Stool Consistency Formed # Voids 1 # Bowel Movements 1 Exam: AVSS, No changes ANGIE. Right groin packing intact. Wound GNB. Pseudomonas. Sensitivity pending. A/P Narrative A/P Narrative: Assessment: Uneventful post op period / progress. Plan: Await sensitivity result. For change of dressing tomorrow. Time Spent With Patient Time: Total time spent is greater than 50% in coordination of care (as docume nted) at patient's floor/unit and/or counseling patient: Total time spent with greater than 50% in coordination of care (as documented) at patient's floor/unit and/or counseling patient:: 25 - 35 minutes
[2021-04-03] MEDS: SENNOSIDES 1 TABLET PO SCH (20:56)
[2021-04-03] MEDS: ATORVASTATIN 40 MG TABLET PO SCH (20:58)
[2021-04-03] MEDS: POLYETHYLENE GLYCOL 3350 17 GM PACKET PO PRN (20:58)
[2021-04-03] MEDS: QUEtiapine 25 MG TABLET PO SCH (20:58)
[2021-04-03] MEDS: CLOTRIMAZOLE 2% VAG SCH (21:00)
[2021-04-04] MEDS: 0.9 % SODIUM CHLORIDE 10 ML SYRINGE IV SCH ×4 (04:20→14:12)
[2021-04-04] MEDS: HYDROcodone/APAP 10/325MG TABLET PO PRN ×3 (04:20→14:02)
[2021-04-04 06:54] LABS: Basophils # (Auto) 0.03 K/mcL (0.00-0.30); Basophils % (Auto) 0.6 % (0.0-2.0); Eosinophils # (Auto) 0.28 K/mcL (0.00-0.70); Eosinophils % (Auto) 5.1 % (0.0-7.0); Hematocrit 33.6 % (34.1-44.9); Lymphocytes # (Auto) 1.96 K/mcL (1.50-4.80); Mean Cell Volume 95.2 fL (80.0-100.0); Mean Corpuscular HGB Conc 29.8 g/dL (31.0-36.0); Mean Platelet Volume 10.1 fL (7.4-10.4); Monocytes # (Auto) 0.56 K/mcL (0.10-0.90); Monocytes % (Auto) 10.3 % (1.0-12.0); Platelet Count 326 K/mcL (140-440); RBC 3.53 M/mcL (3.59-5.38); Red Cell Distribution Width 13.8 % (11.5-14.5); WBC 5.4 K/mcL (4.5-11.0)
[2021-04-04 07:15] LABS: ALT/SGPT 24 U/L (<40); AST/SGOT 36 U/L (<32); Albumin 3.2 gm/dL (3.2-5.2); Alkaline Phosphatase 66 U/L (39-117); Bilirubin,Total 0.4 mg/dL (0.1-1.0); Blood Urea Nitrogen 11 mg/dL (6-20); Calcium 8.7 mg/dL (8.6-10.4); Carbon Dioxide 22 mmol/L (22-30); Chloride 106 mmol/L (96-108); Globulin 3.1 gm/dL (2.2-3.7); Glomerular Filtration Rate 99; Glucose 98 mg/dL (70-105)
[2021-04-04] MEDS: GABAPENTIN 300 MG CAPSULE PO SCH ×2 (07:25→11:40)
[2021-04-04] MEDS: INSULIN LISPRO 1 UNIT/0.01 ML UNIT SQ SCH ×2 (07:28→11:44)
[2021-04-04] MEDS: cefTRIAXone 1 GM VIAL IV SCH (08:44)
[2021-04-04] MEDS: ENOXAPARIN 40 MG/0.4 ML SYRINGE SQ SCH (08:44)
[2021-04-04] MEDS: DOCUSATE SODIUM 100 MG CAPSULE PO SCH (08:44)
[2021-04-04] MEDS: CLOPIDOGREL 75 MG TABLET PO SCH (08:45)
[2021-04-04] MEDS: levETIRAcetam 500 MG TABLET PO SCH (08:45)
[2021-04-04] MEDS: LOSARTAN 25 MG TABLET PO SCH (08:45)
[2021-04-04] MEDS: ASPIRIN 81 MG TAB.CHEW PO SCH (08:45)
[2021-04-04] MEDS: METOPROLOL SUCCINATE 25 MG TAB.XL.24H PO SCH (08:45)
[2021-04-04] MEDS: FLUTICASONE PROPIONATE SPRAY.NAS NS SCH (08:52)
[2021-04-04] MEDS: DICLOFENAC SODIUM 1% TOPICAL SCH ×2 (08:53→12:30)
[2021-04-04] MEDS: INSULIN, 75/25 NPL/LISPRO 1 UNIT/0.01 ML UNIT SQ SCH (10:37)
[2021-04-04] MEDS ORDERED: GENTAMICIN SULFATE 40 MG, CLINDAMYCIN 300 MG in SODIUM CHLORIDE IRRIG SOLUTION 500 ML IRR SCH (11:00)
--- NOTE | 2021-04-04 12:14 | General Surgery Progress Note ---
SUBJECTIVE Subjective Patient information: Note initiated : 04/04/21 at 12:06 pm Service Date, if different from initiated Date: [] Patient: Lawanda Grant 60 y/o F admitted on 03/31/21 for low bp, tachycardia. Chief Complaint: [] Principal diagnosis: POST op open wound RIGHT groin S/P R debridement of infected surgery site Constitutional Vitals: Vital Signs Temp Pulse Resp BP Pulse Ox 96.9 F L 88 18 133/74 95 04/04/21 11:15 04/04/21 11:15 04/04/21 11:15 04/04/21 11:15 04/04/21 11:15 Period Temp Pulse Resp BP Sys/Davidson Pulse Ox Last 24 Hr 96.5 F-98.2 F 74-88 16-18 109-133/63-78 93-95 Intake and Output 04/03/21 04/04/21 04/04/21 21:59 05:59 13:59 Intake Total 1000 525 800 Output Total 300 450 300 Balance 700 75 500 Weight 257 lb 7 oz Intake & Output: Intake & Output 04/03/21 04/04/21 04/04/21 21:59 05:59 13:59 Intake Total 1000 525 800 Output Total 300 450 300 Balance 700 75 500 Weight 257 lb 7 oz Intake: Oral 1000 525 800 Output: Void Amount 300 450 300 Other: Meal Dinner Breakfast Percent of Meal Consumed 100% 100% Feeding Ability Independent Independent Urine Appearance Clear Clear Urine Color Bright Yellow Bright Yellow # Voids 1 1 Exam: AVSS. No changes ANGIE RIGHT groin wound packing removed. Suture remnant in wound will be monitored. Clean wound base. C/S Pseudomonas. S to Cipro Local wound care demonstrated and explained to patient and CG Bro Wilson. A/P Narrative A/P Narrative: Assessment: Satisfactory post op progress Surgical wound site is clean Granulating wound bed. wound c/s Pseudomonas S to Cipro. Plan: OK to D/C home on PO Cipro Local wound care. BID dressings Clean with Vashe Open packing with GC soaked gauze F/U at wound clinic in 1 week Further recommendations later. Plan was d/w Dr. HAQUE, Hospitalist. Wound care explained by Chung Eisenberg Time Spent With Patient Time: Total time spent is greater than 50% in coordination of care (as documented) at patient's floor/unit and/or counseling patient: Total time spent with greater than 50% in coordination of care (as documented) at patient's floor/unit and/or counseling patient:: 25 - 35 minutes
--- NOTE | 2021-04-04 12:19 | Discharge Summary ---
Discharge Provider Provider Patient information: Note initiated : 04/04/21 at 12:15 pm Service Date, if different from initiated Date: [] Patient: Lawanda Grant 60 y/o F admitted on 03/31/21 for low bp, tachycardia. Chief Complaint: [] Date of admission: 03/31/21 17:30 Discharge date: 04/04/21 Primary care physician: Seema Interiano Attending physician on admission: Emir Abad Pui Consults: 03/31/21 Consult to Physician [CONS] Stat Comment: Consulting Provider: Zaki Mix Reason For Exam: Physician to Consult Consult to Physician [CONS] Stat Comment: Consulting Provider: Emir Rodarte Reason For Exam: Physician to Consult 03/31/21 17:39 Consult to Physician [CONS] Stat Comment: right groin wound Consulting Provider: Zaki Mix Reason For Exam: Physician to Consult Attending physician on discharge: Emir Abad Pui Discharge Meds Discharge Medications Home Medications diclofenac sodium 1 % topical gel (Voltaren) 2 g TOPICAL QID 03/08/19 [History Confirmed 03/31/21 Last Taken Unknown] fluticasone propionate 50 mcg/actuation nasal spray,suspension (Flonase Allergy Relief) 2 spray INTRANASAL QDAY #36.4 ml 06/06/19 [Rx Confirmed 03/31/21 Last Taken Unknown] clotrimazole 2 % vaginal cream 1 appful VAGINAL QHS 3 Days #21 g 01/05/20 [Rx Confirmed 03/31/21 Last Taken Unknown] levetiracetam 500 mg tablet (Keppra) 500 mg PO BID #180 tab 06/17/20 [Rx Confirmed 03/31/21 Last Taken Unknown] blood sugar diagnostic (OneTouch Verio test strips) #200 each 06/27/20 [Rx Confirmed 03/31/21 Last Taken Unknown] lorazepam 1 mg tablet 0.5 mg PO Q8H PRN #90 tab 06/27/20 [Rx Confirmed 03/31/21 Last Taken Unknown] gabapentin 300 mg capsule See Rx Instructions .ROUTE .COMPLEX #360 cap 07/29/20 [Rx Confirmed 03/31/21 Last Taken Unknown] conjugated estrogens 0.625 mg/gram vaginal cream (Premarin) 0.625 mg VAGINAL 2XW #30 g 08/27/20 [Rx Confirmed 03/31/21 Last Taken Unknown] insulin lispro protamine-lispro 100 unit/mL (75-25) subcutaneous susp (Humalog Mix 75-25(U-100)Insuln) 50 unit (0.5 mL) SUB-Q .COMPLEX #100 ml 10/28/20 [Rx Confirmed 03/31/21 Last Taken Unknown] ergocalciferol (vitamin D2) 1,250 mcg (50,000 unit) capsule (Vitamin D2) See Rx Instructions .ROUTE .COMPLEX #12 cap 12/10/20 [Rx Confirmed 03/31/21 Last Taken Unknown] atorvastatin 80 mg tablet 80 mg PO QHS #90 tab 01/01/21 [Rx Confirmed 03/31/21 Last Taken Unknown] clopidogrel 75 mg tablet 75 mg PO QDAY #90 tab 01/01/21 [Rx Confirmed 03/31/21 Last Taken Unknown] quetiapine 25 mg tablet 25 - 50 mg PO QHS #180 tab 01/01/21 [Rx Confirmed 03/31/21 Last Taken Unknown] insulin syringe-needle U-100 1 mL 31 gauge x 5/16" (BD Insulin Syringe Ultra- Fine) See Rx Instructions .ROUTE .COMPLEX #100 each 01/24/21 [Rx Confirmed 03/31/21 Last Taken Unknown] baclofen 10 mg tablet See Rx Instructions .ROUTE .COMPLEX #90 tab 02/06/21 [Rx Confirmed 03/31/21 Last Taken Unknown] fluconazole 100 mg tablet (Diflucan) 100 mg PO QDAY #7 tab 02/11/21 [Rx Confirmed 03/31/21 Last Taken Unknown] hydrocodone 10 mg-acetaminophen 325 mg tablet 1 tab PO Q4H PRN #90 tab 02/24/21 [Rx Confirmed 03/31/21 Last Taken Unknown] metformin 1,000 mg tablet See Rx Instructions .ROUTE .COMPLEX #300 tab 03/05/21 [Rx Confirmed 03/31/21 Last Taken Unknown] aspirin 81 mg tablet,delayed release 81 mg PO QDAY 03/19/21 [History Confirmed 03/31/21 Last Taken Unknown] losartan 25 mg tablet 25 mg PO QDAY 03/25/21 [History Confirmed 03/31/21 Last Taken Unknown] metoprolol succinate 25 mg tablet,extended release 24 hr 25 mg PO QDAY 03/27/21 [History Confirmed 03/31/21 Last Taken Unknown] ciprofloxacin HCl 500 mg tablet 500 mg PO BID 14 Days #28 tab 04/04/21 [Rx Last Taken Unknown] COURSE Hospital Course Hospital course: Patient was admitted on right groin surgical site infection. Dr. Mix was consulted who performed a wound debridement on April 02 with wound dressing placement afterward. Patient's wound culture eventually growing Pseudomonas aeruginosa. She was initially being treated with vancomycin and Rocephin for which the vancomycin was subsequently dropped after a MRSA screening was negative. Rocephin will be changed to ciprofloxacin given the sensitivity report of the wound culture. By April 04, 2021, patient has reached clinical stability, any leukocytosis resolved, has been afebrile for more than 24 hours, and the decision was thus made to discharge the patient's home with prescriptions of oral ciprofloxacin given to her. 1 week follow-up with Dr. Mix made for her. All questions were answered prior to patient being physically discharged. Discharge diagnosis: right groin surgical site infection Reason for admission: right groin surgical site infection Time Spent with Patient Time attestation: Total time spent providing and/or coordinating discharge services: Time spent: Less than 30 minutes EXAM Constitutional Vitals: Temp Pulse Resp BP Pulse Ox 36.1 C L 88 18 133/74 95 04/04/21 11:15 04/04/21 11:15 04/04/21 11:15 04/04/21 11:15 04/04/21 11:15 General appearance: cooperative and no acute distress Head Head exam: Present atraumatic and normocephalic Eye Eye exam: Present EOMI and PERRL ENT ENT exam: Present mucous membranes moist, normal exam and normal external ear exam Neck Neck exam: Present normal inspection; Absent lymphadenopathy, tenderness or thyromegaly Respiratory Respiratory exam: Absent accessory muscle use, respiratory distress or wheezes Cardiovascular Cardiovascular exam: Present normal rate and rhythm; Absent JVD GI/Abdominal GI/Abdominal exam: Present normal bowel sounds and soft; Absent organomegaly or tenderness Extremities Exam Extremities exam: Present full ROM, normal capillary refill and normal inspection; Absent tenderness Neurological Exam Neurological exam: Present alert, CN II-XII intact and oriented X3; Absent motor sensory deficit Psychiatric Psychiatric exam: Present normal affect and normal mood; Absent anxious or depressed Skin Skin exam: Present dry; Absent intact Additional comments: Right groin surgical wound with surrounding erythema Discharge Data Data Completed and Pending Labs on day of discharge: Labs from last 24 hours 04/04/21 04/04/21 05:55 05:55 WBC 5.4 RBC 3.53 L Hgb 10.0 L Hct 33.6 L MCV 95.2 MCH 28.3 MCHC 29.8 L RDW 13.8 Plt Count 326 MPV 10.1 Neut % (Auto) 48.0 Lymph % (Auto) 36.0 [place] % (Auto) 10.3 Eos % (Auto) 5.1 Baso % (Auto) 0.6 Lymph # (Auto) 1.96 [place] # (Auto) 0.56 Eos # (Auto) 0.28 Baso # (Auto) 0.03 Absolute Neutrophils 2.61 Sodium 140 Potassium 3.6 Chloride 106 Carbon Dioxide 22 Anion Gap 12.0 BUN 11 Creatinine 0.6 GFR Calculation 99 Glucose 98 Calcium 8.7 Total Bilirubin 0.4 AST 36 H ALT 24 Alkaline Phosphatase 66 Total Protein 6.3 Albumin 3.2 Globulin 3.1 Albumin/Globulin Ratio 1.0 Preliminary micro results at discharge 04/02/21 07:53 Gram Stain - Preliminary Groin - Right Anaerobic Culture - Preliminary Wound Culture - Preliminary Pseudomonas species 03/31/21 23:46 Gram Stain - Preliminary Groin - Right Wound Culture - Preliminary Pseudomonas aeruginosa Pseudomonas aeruginosa#2 03/31/21 14:45 Blood Culture - Preliminary Blood 03/31/21 14:39 Blood Culture - Preliminary Blood Discharge Plan Patient/Caregiver Discharge Instructions Activity: increase activity as tolerated Diet: Regular Diet Prescriptions: New ciprofloxacin HCl 500 mg tablet 500 mg PO BID 14 Days Qty: 28 0RF Continued clotrimazole 2 % cream 1 appful VAGINAL QHS 3 Days Qty: 21 3RF fluticasone propionate [Flonase Allergy Relief] 50 mcg/actuation spray,suspension 2 spray INTRANASAL QDAY Qty: 36.4 1RF Rx Instructions: administer into each nostril levetiracetam [Keppra] 500 mg tablet 500 mg PO BID Qty: 180 3RF lorazepam 1 mg tablet 0.5 mg PO Q8H PRN (Reason: anxiety) Qty: 90 1RF gabapentin 300 mg capsule See Rx Instructions .ROUTE .COMPLEX Qty: 360 2RF Dose Instruction: take 1 capsule by mouth every morning and 1 capsule AT NOON and 2 capsules at bedtime Rx Instructions: take 1 capsule by mouth every morning and 1 capsule AT NOON and 2 capsules at bedtime Premarin 0.625 mg/gram cream 0.625 mg vaginal 2XW Qty: 30 3RF ergocalciferol (vitamin D2) [Vitamin D2] 1,250 mcg (50,000 unit) capsule See Rx Instructions .ROUTE .COMPLEX Qty: 12 3RF Dose Instruction: take 1 capsule by mouth every week Rx Instructions: take 1 capsule by mouth every week atorvastatin 80 mg tablet 80 mg PO QHS Qty: 90 1RF clopidogrel 75 mg tablet 75 mg PO QDAY Qty: 90 1RF quetiapine 25 mg tablet 25 - 50 mg PO QHS Qty: 180 1RF insulin syringe-needle U-100 [BD Insulin Syringe Ultra-Fine] 1 mL 31 gauge x 5/16 syringe See Rx Instructions .ROUTE .COMPLEX Qty: 100 6RF Dose Instruction: use twice a day Rx Instructions: use twice a day baclofen 10 mg tablet See Rx Instructions .ROUTE .COMPLEX Qty: 90 0RF Dose Instruction: take 1 tablet by mouth three times a day if needed for muscle spasm Rx Instructions: take 1 tablet by mouth three times a day if needed for muscle spasm fluconazole [Diflucan] 100 mg tablet 100 mg PO QDAY Qty: 7 0RF hydrocodone-acetaminophen 10-325 mg tablet 1 tab PO Q4H PRN (Reason: pain) Qty: 90 0RF metformin 1,000 mg tablet See Rx Instructions .ROUTE .COMPLEX Qty: 300 3RF Dose Instruction: take 1 tablet by mouth twice a day Rx Instructions: take 1 tablet by mouth twice a day losartan 25 mg tablet 25 mg PO QDAY 0RF metoprolol succinate 25 mg tablet extended release 24 hr 25 mg PO QDAY 0RF diclofenac sodium [Voltaren] 1 % gel 2 g TOPICAL QID 0RF aspirin 81 mg tablet,delayed release (DR/EC) 81 mg PO QDAY 0RF Humalog Mix 75-25(U-100)Insuln 100 unit/mL (75-25) suspension 50 unit SUB-Q .COMPLEX Qty: 100 3RF Rx Instructions: 54 units subcut QAM, 44 units subcut QPM; can increase Am insulin by 2 units every 3 days till glucose below 140; No Action (DME) OneTouch Verio test strips Strip See Rx Instructions .ROUTE .MEDSUPPLY Qty: 200 3RF Rx Instructions: check blood sugar twice daily Follow Up Plan Follow up with: Zaki Mix MD [Physician] - (in 1 week) Seema Interiano ARNP [Primary Care Provider] - (in 2 week) Patient Disposition: Home, Self-Care Prognosis: Fair Rehab Potential: Good I certify that the patient requires SNF services: No Overall status at discharge: patient is progressing back to baseline Discharge Orders: Discharge Order (Routine); Ordered 04/04/21 Ordered By: Emir PERAZA VTE Deep Vein Thrombosis/Pulmonary Embolism Present on Admission: No
[2021-04-04] MEDS ORDERED: CLINDAMYCIN IRR SCH (13:00)
[2021-04-04] MEDS ORDERED: BACITRACIN IRR SCH (13:00)
[2021-04-04] MEDS ORDERED: [UNRECOGNIZED DRUG - OTHER] IRR SCH (13:00)
[2021-04-04] MEDS ORDERED: GENTAMICIN SULFATE IRR SCH (13:00)
== END 2021-04-04 14:20 | disposition home or self-care (01) | DRG 857 ==
LOC: ED 13:58 → MEDSUR 17:30
PROVIDERS: ADMIT Internal Medicine; ATTEND Internal Medicine